=== PATIENT | male | born 1935 | race Caucasian/White ===

== ENCOUNTER → 2017-06-12 13:02 | Outpatient (POV) | payer MEDICARE, SELFPAY | PROVIDERS: Visit Provider Nurse Practitioner Acute Care | DX: Z00.00 Encounter for general adult medical examination without abnormal findings (principal) ==

== ENCOUNTER 2017-07-31 08:27 | Day surgery (SDC) | payer MEDICARE, SELFPAY ==
[2017-07-25 14:03] VITALS: BMI 26.9
[2017-07-31] VITALS (7 sets, daily range): BP systolic 146–178; BP diastolic 64–77; PULSE 44–61; RESP 16–18; TEMP 36.4–36.8; O2SAT 99–100
--- NOTE | 2017-07-31 09:33 | P.PN_ITS ---
[facility] Anesthesia Checklist - Structural Data Admitted From: Home Planned Operative Procedure/s: egd Consent for Planned Operative Procedure(s) Verified: Yes - Airway Assessment C-Spine Mobility Assessed: Yes TMJ Mobility Assessed: Yes Dentition: Good Dentition - Neurological Assessment Level of Consciousness: Awake, Alert - Anesthesia Plan Anesthesia Risk discussed: Yes Anesthesia Plan: Verified ASA Class: III Anesthesia Type: MAC [facility] Anesthesia HX Medical History: Reports:: Hyperlipidemia, Hypertension, Lung Disease (sleep apnea-uses cpap) Denies:: Diabetes Mellitus Type 1, Diabetes Mellitus Type 2, Internal Pacemaker, Seizures Other Surgeries: No: Pacemaker
--- NOTE | 2017-07-31 10:37 | P.PCN_ITS ---
[facility] Procedure Note Procedure Note:: Upper Endoscopy Procedure Report: Esophagogastroduodenoscopy with cold biopsies and TTS balloon dilation Endoscopost: Paulo Avelar II, MD Referring Physician: Rosas Bender MD Date of Procedure: July 31, 2017 Equipment: Olympus GIF 180 standard upper endoscope Sedation: MAC sedation Indications: Mr. Harris is a 81-year-old gentleman who had undergone colonoscopy in October 2016 because of lower abdominal pain and change in bowel habits. At that time he was having alternating constipation with diarrhea as well as rectal bleeding and 15 pound weight loss. He was having moderate bloating and gassiness. His colonoscopy at that time showed a descending colon polyp (tubular adenoma) which was removed. He also had diverticulosis and grade 2 internal hemorrhoids which were banded. Now, he states he had a change in bowel habits after the colonoscopy. He has been on MiraLAX and psyllium husk and reports very small bowel movements with incomplete bowel evacuation. He has had more severe bloating. He has continued to lose some weight. He has had dyspepsia. EGD is performed for further evaluation. Procedure: Prior to the procedure, a history and physical exam was performed, and patient' s medications and allergies were reviewed. The risks, benefits and alternatives of the sedation and procedure were discussed with the patient. All questions were answered and informed consent was obtained. The patient was brought to the procedure room. Patient identification and proposed procedure were verified by the physician and the nurse. The patient was placed in a left lateral decubitus position and the scope was passed under direct vision. Throughout the procedure, the patient's blood pressure, pulse, and oxygen saturations were monitored continuously. The upper GI endoscopy was accomplished without difficulty. The patient tolerated the procedure well. Findings: The scope was passed directly into the upper esophagus and advanced to the third portion of the duodenum. The post bulbar duodenum and duodenal bulb were normal with normal mucosa and conniventes. The scope was withdrawn through a normal duodenal bulb and pylorus into the stomach. There was some mild linear erythema of the antrum and body. The remainder of the antrum, body and fundus of the stomach were grossly normal. Upon retroflexion there was no hiatal hernia. 2 biopsies were taken in the antrum and along the lesser curvature for histology to rule out gastritis and/or H pylori. The scope was then withdrawn into the esophagus. There were some tertiary contractions and mild dysmotility. The entire esophagus was dilated to 60 Hungarian/20 mm with a TTS hydrostatic balloon. There was some resistance at the cricopharyngeus/ upper esophageal sphincter. The remainder of the esophageal mucosa was normal. Impression: 1. Mild cricopharyngeal spasm 2. Mild linear reactive gastritis Plan: I do feel that the patient has difficult to avoid difficulties and will discuss additional treatment options including increasing MiraLAX to twice daily plus the addition of Konsyl (improved bulk). We will also discuss elevation of the knees during defecation which may help evacuation.
== END 2017-07-31 11:13 | disposition home or self-care (01) ==
LOC: OUTP 08:28
PROVIDERS: Visit Provider Internal Medicine Gastroenterology
PROC: 0DJ08ZZ Inspection of Upper Intestinal Tract, Via Natural or Artificial Opening Endoscopic (ICD-10-PCS; CPT 43235; principal; 2017-07-31 10:00)
DX: J39.2 Other diseases of pharynx (principal); K29.60 Other gastritis without bleeding
CPT/HCPCS: 43239; 43249; 88305; C1726

== ENCOUNTER → 2017-10-30 09:13 | Outpatient (POV) | payer MEDICARE, SELFPAY | PROVIDERS: Visit Provider Nurse Practitioner Acute Care | DX: Z00.00 Encounter for general adult medical examination without abnormal findings (principal) ==

== ENCOUNTER → 2018-05-18 08:52 | Outpatient (CLI) | payer MEDICARE, SELFPAY ==
[2018-05-18 12:08] LABS: Alanine Aminotransferase 17 U/L (12-78); Albumin Level 3.7 gm/dL (3.4-5.0); Alkaline Phosphatase 90 U/L (46-116); Aspartate Amino Transferase 10 U/L (15-37); Bilirubin,Direct 0.2 mg/dL (0.0-0.2); Bilirubin,Indirect 0.4 mg/dL (0.0-0.9); Bilirubin,Total 0.6 mg/dL (0.2-1.0); Chol/HDL Ratio 1.8 (1-3.5); Cholesterol 147 mg/dL (140-200); HDL Cholesterol 81 mg/dL (27-67); LDL Cholesterol 52 mg/dL (0-130); Total Protein,Serum 6.7 gm/dL (6.4-8.2); Triglycerides 71 mg/dL (30-200); VLDL Cholesterol 14 mg/dL (0-40)
== END ==
PROVIDERS: Visit Provider Internal Medicine Cardiovascular Disease
DX: Z95.5 Presence of coronary angioplasty implant and graft (principal); E78.2 Mixed hyperlipidemia
CPT/HCPCS: 36415; 80061; 80076

== ENCOUNTER 2018-05-31 09:32 | Outpatient (RCR) | payer MEDICARE, SELFPAY | END 2018-07-06 13:44 | disposition home or self-care (01) | LOC: PT 09:32 | PROVIDERS: Visit Provider Internal Medicine | DX: Z95.5 Presence of coronary angioplasty implant and graft (principal) | CPT/HCPCS: 93798 ==

== ENCOUNTER → 2018-09-03 12:39 | Outpatient (CLI) | payer MEDICARE, SELFPAY ==
--- NOTE | 2018-09-03 12:41 | CI_ITS ---
Cerebrovascular Exam Indications: Follow-up carotid 433.10. 780.4 Dizziness and giddiness. IMPRESSIONS 1. The bilateral vertebral arteries are patent with normal antegrade flow. 2. Study suggests 20-49% stenosis involving the right internal carotid artery. 3. Study suggests 20-49% stenosis involving the left internal carotid artery. History: Risk factors: Hypertension. Carotid duplex study. Complete study and Doppler flow study including spectral analysis, color and bay scale imaging. Height: Height: 167.6cm. Height: 66in. Weight: Weight: 68kg. Weight: 149.7lb. Body mass index: BMI: 24.2kg/m^2. Body surface area: BSA: 1.79m^2. Location: Vascular laboratory. Patient status: Outpatient. Tables: Arterial flow: + +--------+--------+ Location V sys V ed + +--------+--------+ Right CCA - proximal 107cm/s 12.6cm/s + +--------+--------+ Right CCA - distal 96.6cm/s 9.4cm/s + +--------+--------+ Right ECA 107cm/s 1.5cm/s + +--------+--------+ Right ICA - proximal 77.3cm/s 16.2cm/s + +--------+--------+ Right ICA - mid 84cm/s 12.6cm/s + +--------+--------+ Right ICA - distal 84.8cm/s 14.5cm/s + +--------+--------+ Right vertebral 43.6cm/s 7.7cm/s + +--------+--------+ Left CCA - proximal 99.3cm/s 10.4cm/s + +--------+--------+ Left CCA - distal 77.5cm/s 8.7cm/s + +--------+--------+ Left ECA 97.1cm/s 3.7cm/s + +--------+--------+ Left ICA - proximal 67.5cm/s 14.1cm/s + +--------+--------+ Left ICA - mid 92.7cm/s 15.6cm/s + +--------+--------+ Left ICA - distal 78.7cm/s 13.5cm/s + +--------+--------+ Left vertebral 40.3cm/s 9.3cm/s + +--------+--------+ Velocity ratios: + + + + + + Right, V sys Right, V ed Left, V sys Left, V ed + + + + + + Max ICA/dist CCA 0.88 1.72 1.2 1.8 + + + + + + (Report amended ) Electronically signed by: Taye Vazquez [id number]
== END ==
PROVIDERS: PCP Family Medicine; Visit Provider Internal Medicine
DX: I25.118 Atherosclerotic heart disease of native coronary artery with other forms of angina pectoris; E78.2 Mixed hyperlipidemia; G47.33 Obstructive sleep apnea (adult) (pediatric); G47.9 Sleep disorder, unspecified; I10 Essential (primary) hypertension; R06.83 Snoring; R40.0 Somnolence; R42 Dizziness and giddiness
CPT/HCPCS: 93880

== ENCOUNTER → 2019-11-01 07:52 | Outpatient (CLI) | payer MEDICARE, SELFPAY ==
--- NOTE | 2019-11-01 07:53 | CA_ITS ---
APPROVED REPORT EXAM: Comprehensive 2D, Doppler, and color-flow Echocardiogram Director Of Residential Services: Cassidy Guardado RT(R) Ht: 5 ft 6 in Wt: 158lbs BSA: 1.81 BP: 160/63 mmHg Indications: HTN, SOB, DOUGLASS, hyperlipidemia, CAD, GERD 2D Dimensions LVOT 1.98 cm (M/F) 1.5-2.5 M-Mode Dimensions RVDd 1.37 cm (0.9-2.6) LVDd 4.46 cm (3.5-5.7) LVDs 3.03 cm (3.5-5.7) IVSd 0.62 cm (0.6-1.1) PWd 0.87 cm (0.6-1.1) EF (Teich) 60.30% FS 32.10% EDV (Teich) 90.50 mL ESV (Teich) 35.90 mL LV Diastology E/A Ratio 1.02 Mitral Valve MV A Velocity 113.00 (40-130 cm/s) Left Ventricle Left atrium is mildly enlarged, left ventricle is normal size, mild concentric left ventricular hypertrophy, visually estimated ejection fraction 55% with no regional wall motion abnormality, grade 1 diastolic dysfunction seen without tissue Doppler evidence of raise left atrial pressure. Right Ventricle Right atrium and right ventricle are normal size and contractility. Aortic Valve Aortic valve is minimally thickened and fibrosed, there is no aortic stenosis, there is mild aortic insufficiency. Mitral Valve Mitral valve has mild mitral calcification, there is no mitral stenosis, there is mild mitral regurgitation. Tricuspid Valve Tricuspid valve is grossly normal, there is mild tricuspid regurgitation, tricuspid regurgitation jet velocity is inadequate for calculation of the right ventricular systolic pressure. Pulmonic Valve Pulmonic valve is poorly visualized. Great Vessels Aortic root is normal size. Pericardium No significant pericardial effusion noted. Conclusion 1. Mildly enlarged left atrium, normal left ventricular size, mild concentric left ventricular hypertrophy, visually estimated ejection fraction 55% with no regional wall motion abnormality, grade 1 diastolic dysfunction seen without tissue Doppler evidence of raise left atrial pressure. 2. Thickened and calcified aortic valve without aortic stenosis, there is mild aortic insufficiency. 3. Mild mitral and tricuspid regurgitation. 4. No significant pericardial effusion noted. Electronically signed by : Tom Barrera, 11/01/2019 10:13:02
[2019-11-01 10:13] LABS: Chloride 107 mmol/L (98-107); Potassium 4.2 mmoL/L (3.5-5.1); Sodium 140 mmol/L (136-145)
[2019-11-01 10:16] LABS: Anion Gap 7.2 mEq/L (5-15); Blood Urea Nitrogen 19 mg/dl (9-20); Carbon Dioxide 30 mmol/L (22.0-30.0); Estimated Glomerular Filt Rate 81 ml/min (>60); GFR (African American) 98 ML/MIN (>60)
[2019-11-01 10:22] LABS: Calcium 8.7 mg/dl (8.4-10.2)
[2019-11-01 19:21] LABS: Glucose 89 mg/dl (74-100)
== END ==
PROVIDERS: PCP Family Medicine; Visit Provider Physician Assistant
DX: I25.118 Atherosclerotic heart disease of native coronary artery with other forms of angina pectoris (principal); I10 Essential (primary) hypertension; Z51.81 Encounter for therapeutic drug level monitoring; Z79.899 Other long term (current) drug therapy
CPT/HCPCS: 36415; 80048; 93306

== ENCOUNTER → 2020-02-27 11:45 | Outpatient (CLI) | payer MEDICARE, SELFPAY ==
[2020-02-27 12:56] LABS: Chloride 102 mmol/L (98-107); Potassium 4.2 mmoL/L (3.5-5.1); Sodium 140 mmol/L (136-145)
[2020-02-27 12:59] LABS: Anion Gap 10.2 mEq/L (5-15); Blood Urea Nitrogen 21 mg/dl (9-20); Calcium 9.2 mg/dl (8.4-10.2); Carbon Dioxide 32 mmol/L (22.0-30.0); Estimated Glomerular Filt Rate 72 ml/min (>60); GFR (African American) 87 ML/MIN (>60); Glucose 107 mg/dl (74-100)
== END ==
PROVIDERS: Visit Provider Internal Medicine Cardiovascular Disease
DX: E78.2 Mixed hyperlipidemia (principal); I10 Essential (primary) hypertension; I25.10 Atherosclerotic heart disease of native coronary artery without angina pectoris; I65.29 Occlusion and stenosis of unspecified carotid artery; R00.1 Bradycardia, unspecified; R42 Dizziness and giddiness
CPT/HCPCS: 36415; 80048

== ENCOUNTER → 2020-09-02 14:59 | Outpatient (CLI) | payer MEDICARE, SELFPAY ==
--- NOTE | 2020-09-02 15:00 | CA_ITS ---
APPROVED REPORT Couples Therapist: JACK Laterality: Bilateral Study Quality: Good Indications: dizziness/sweta Risk Factors Hypertension: Hyperlipidemia Doppler Spectral Velocity Analysis ECA (R) 140.10/11.80 cm/s ECA (L) 97.70/15.40 cm/s dICA (R) 94.10/24.60 cm/s dICA (L) 90.00/26.60 cm/s Karie (R) 94.10/23.50 cm/s Karie (L) 78.80/18.80 cm/s pICA (R) 92.00/17.10 cm/s pICA (L) 91.70/16.30 cm/s dCCA (R) 105.90/22.50 cm/s dCCA (L) 87.70/15.00 cm/s pCCA (R) 108.00/18.20 cm/s pCCA (L) 103.70/18.20 cm/s Vert (R) 56.80/12.50 cm/s Vert (L) 35.90/9.00 cm/s ICA/CCA 0.85 ICA/CCA 1.04 Findings Duplex evaluation demonstrates antegrade flow of the bilateral Vertebral Arteries.Duplex evaluation demonstrates stenosis of the right proximal internal carotid artery in the range of 20-49% with PSV <140 cm/sec, EDV <100 cm/sec, and IC/CC Ratio <4.0.Duplex evaluation demonstrates stenosis of the left proximal internal carotid artery in the range of 20-49% with PSV <140 cm/sec, EDV <100 cm/sec, and IC/CC Ratio <4.0. Conclusion Duplex evaluation demonstrates antegrade flow of the bilateral Vertebral Arteries.Duplex evaluation demonstrates stenosis of the right proximal internal carotid artery in the range of 20-49% with PSV <140 cm/sec, EDV <100 cm/sec, and IC/CC Ratio <4.0.Duplex evaluation demonstrates stenosis of the left proximal internal carotid artery in the range of 20-49% with PSV <140 cm/sec, EDV <100 cm/sec, and IC/CC Ratio <4.0. Electronically signed by : Taye Vazquez MD 09/02/2020 17:07:31
== END ==
PROVIDERS: PCP Family Medicine; Visit Provider Internal Medicine Cardiovascular Disease
DX: E78.5 Hyperlipidemia, unspecified (principal); I10 Essential (primary) hypertension; I25.10 Atherosclerotic heart disease of native coronary artery without angina pectoris; R00.1 Bradycardia, unspecified; R42 Dizziness and giddiness; I65.23 Occlusion and stenosis of bilateral carotid arteries
CPT/HCPCS: 93880

== ENCOUNTER → 2021-03-30 11:05 | Outpatient (CLI) | payer MEDICARE, SELFPAY ==
--- NOTE | 2021-03-30 | CA_ITS ---
APPROVED REPORT Exam: Exercise Treadmill Technologist: Lupe Alan Ht: 5 ft 6 in Wt: 144 lbs BSA: 1.74 m2 HR: 47 bpm BP: 138/44 mmHg Indications: Shortness of Breath, Chest pain Medical History Medications: Aspirin,,,,, Pantoprazole,,,,, Terazosin,,,,, Losartan/HCTZ,,,,, DONEPEZIL,,,,, OxYbutynin,,,,, CoQ10,,,,, MeLATONIN,,,,, RoSUVASTATIN,,,,, PolyethYLENE GLYCOL,,,,, Stress Test Details Test: Hakeem HR Resting HR: 60 bpm Max Heart Rate (APMHR): 137.857971 bpm Max HR Achieved: 117 bpm Target HR (85% APMHR): 116.889941 bpm % of APMHR: 85.40 Recovery HR: 55 bpm BP Resting BP: 138.0/44.0 mmHg Max BP: 175.0/67.0 mmHg Recovery BP: 150.0/63.0 mmHg ECG Resting ECG: Marked sinus bradycardia, first degree AV block. Clinical Exercise duration: 08:15 min Highest Stage Achieved: Exercise capacity: 10.1 METs Stress ECG Conclusion Patient exercised 8:15 on Hakeem Protocol. Test stopped due to shortness of air, fatigue. Symptoms: Shortness of air and mild chest tightness. Arrhythmias/Ectopy: Rare PAC and PVC. ST-T Changes: Allowing for motion artifact, there are NS ST changes in the inferior and lateral leads, but the ST response is within normal. Conclusion: Normal GXT. Myoview images reported separately. Test Summary RECOVERY 05:00 0.0 0.0 51 . 155/ 76 . . REST . . . . . . . Standing REST 05:43 0.0 0.0 60 . 138/ 44 . . Stage 1 01:00 10.0 1.7 77 . . . . Stage 1 02:00 10.0 1.7 76 . . . . Stage 1 03:00 10.0 1.7 80 . . . . Stage 2 01:00 12.0 2.5 85 . . . . Stage 2 02:00 12.0 2.5 93 . 142/ 56 . . Stage 2 03:00 12.0 2.5 96 . 142/ 56 . . Stage 3 01:00 14.0 3.4 103 . . . . Stage 3 . . . . . . . Myoview Injected Stage 3 02:00 14.0 3.4 114 . . . . Stage 3 02:15 14.0 3.4 115 . . . Stop exercise at 08:15 RECOVERY 01:00 0.0 0.0 106 . . . . RECOVERY 02:00 0.0 0.0 66 . . . . RECOVERY 03:00 0.0 0.0 61 . 175/ 67 . . RECOVERY 04:00 0.0 0.0 82 . 155/ 76 . . RECOVERY 05:00 0.0 0.0 51 . 155/ 76 . . RECOVERY 06:00 0.0 0.0 55 . 150/ 63 . . RECOVERY 06:16 0.0 0.0 61 . 150/ 63 . . Electronically signed by : Tom Barrera MD 03/30/2021 22:02:20
--- NOTE | 2021-03-30 11:06 | NM_ITS ---
APPROVED REPORT Exam: Nuclear Stress Test Indication: chest pain..short of breath Patient Location: Outpatient Stress Tech: Lupe Alan NM Tech:Svitlana Howard, ARRT, RT (R)(N) Ht: 5 ft 6 in Wt: 145 lbs HR: 47 bpm BP: 138/44 mmHg BSA: 1.74 m2 BMI: 23.4 History: chest pain..short of breath Procedure: Patient exercised on Hakeem protocol 8.15 minutes and sec, resting heart rate 47 bpm, resting blood pressure 138/44 mmHg, with exercise maximum heart rate achived was 117 bpm which is 85 % of the maximum predicted heart rate and blood pressure was 175/69 mmHg. Test was stopped due to soa and fatigue. Patient has good exercise capacity, achieved 10.1 METs of workload on treadmill, the blood pressure response to exercise was adequate. Electrocardiogram Resting electrocardiogram shows sinus rhythm nonspecific ST-T changes, with exercise there is less than 1.[address] segment depression noted from the baseline EKG. The EKG portion of the exercise Myoview is negative for ischemia. Cardiac Stress and Resting SPECT Images: Cardiac Stress and Resting SPECT images were obtained using technetium 99m Myoview 32.8 mCi stress and 10.47 mCi at rest. Gated SPECT for analysis of segmental wall motion and calculation of the ejection fraction also done. Prone images were also obtained. Cardiac stress and resting SPECT images show uniform myocardial activity without segmental perfusion abnormality, computer derived ejection fraction is 55% with no regional wall motion abnormality, right ventricle is mildly enlarged with normal contractility. Conclusion: 1. The EKG portion of the exercise Myoview is negative for ischemia, patient has good exercise capacity achieved 10.1 METs of workload on treadmill, the blood pressure response to exercise was adequate, there was no exercise-induced chest discomfort. 2. No scintigraphic evidence of reversible ischemia seen, computer derived ejection fraction is 55% with no regional wall motion abnormality, right ventricle is mildly enlarged with normal contractility. 3. Normal exercise Myoview study. Electronically signed by : Tom Barrera MD 03/31/2021 06:35:48
--- NOTE | 2021-03-30 13:20 | HMH.ITSHM ---
Current Home Medications as stated by this patient Chetan Harris or sales representative wire rope. []ROSUVASTATIN PANTOPRAZOLE OXYBUTYNIN MELATONIN LOSARTAN DONEPEZIL COQ10 TERAZOSIN ASA
== END ==
PROVIDERS: PCP Family Medicine; Visit Provider Internal Medicine Cardiovascular Disease
DX: R06.00 Dyspnea, unspecified (principal)
CPT/HCPCS: 78452; 93017; A9502

== ENCOUNTER 2024-04-24 13:48 | Outpatient (CLI) | payer MEDICARE, SELFPAY ==
--- OUTSIDE RECORDS SUMMARY | 2024-04-24 13:50 | XMS_ITS | Encounter Summary ---
Author Name [facility] Address [address] [place] [address] Care Team Providers Care Life Scientists Name Role Phone LIOR JAUREGUI Primary Care Provider Unavailabl e Insurance Providers: All historical and current Section Date Range: From patient's date of to the date document was created. This section includes the names of all active insurance providers for the patient. Insurance Provider Type of Coverage Plan Name Start of Policy Coverage End of Policy Coverage Group Number Member ID Insurance Provider's Telephone Number Policy Ling's Name Patient's Relationship to Policy Ling BS [place] M[place] ([place]) MEDICARE ADVANTAGE MCR (WNR) May 29, 2018 [id number] Yoav KUMAR PATIENT [employer] MCR (WNR) MEDICARE ADVANTAGE MCR (WNR) May 29, 2020 [id number] [phone] Yoav KUMAR PATIENT [employer] MCR (WNR) MEDICARE ADVANTAGE MCR (WNR) May 29, 2020 [id number] [phone] Yoav KUMAR PATIENT [employer] MCR (WNR) MEDICARE ADVANTAGE MCR(W NR) May 29, 2012 [id number] [phone] Yoav KUMAR PATIENT MEDICARE (WNR) MEDICARE (M) PART A Jul 27, 2002 PART A [id number] Yoav KUMAR PATIENT MEDICARE (WNR) MEDICARE (M) PART B Jul 27, 2002 PART B [id number] [phone] Yoav KUMAR PATIENT MEDICARE PART D (WNR) MEDICARE (M) PART D May 29, 2012 PART D [id number] Yoav KUMAR PATIENT MEDICARE PART D (WNR) MEDICARE (M) PART D May 29, 2012 PART D [id number] [phone] Yoav KUMAR PATIENT Selected Encounter This section includes the information on record at [place] for the Encounter. Date/Time Encounter Type Encounter Description Reason Provider Source Sep 05, 2023 01:00 PM COMPRE OPH EXAM EST PT 1/> OPTOMETRY ICD-10-CM H35.3131 Nexdtve age-related mclr degn, bilateral, early dry stage CONCEPCION ROMO Marly Encounter Template Text not used by [facility] Assessments - Encounter Diagnoses This section includes the primary and secondary diagnoses documented for the Encounter. Date/Time Primary/Secondary Diagnosis Diagnosis Name Provider Source Sep 05, 2023 01:23 PM PRIMARY Nexdtve age-related mclr degn, bilateral, early dry stage [facility] Sep 05, 2023 01:23 PM SECONDARY Combined forms of age-related cataract, bilateral [facility] Sep 05, 2023 01:23 PM SECONDARY Dry eye syndrome of bilateral lacrimal glands [facility] Sep 05, 2023 01:23 PM SECONDARY Presbyopia [facility] Plan of Treatment: Future Appointments (+ 6 months) and Future Tests (+/- 45 days) The Plan of Treatment section includes future care activities for the patient from all [place] treatmentfacilities. This section includes future appointments and future orders which are active, pending or scheduled. Future Appointments This section includes appointments that were scheduled to occur 6 months from the date of the Encounter, up to a maximum of 20 appointments. The data comes from all [place] treatment facilities. Appointment Date/Time Appointment Type Appointme nt Facility Name Feb 27, 2024 12:30 PM AMBULATORY - SURGERY [facility]GEL[facility] B[facility] Lab Results: +/- 30 days of the encounter This section includes the Chemistry and Hematology Lab Results on record with [place] for the patient. Radiology Reports and Pathology Reports are provided separately, in subsequent sections. Lab Results This section contains the Chemistry/Hematology Results that were resulted 30 days before or 30 daysafter the date of the Encounter. Date/Time Source Result Type Result - Unit Interpretation Reference Range Comment Aug 24, 2023 11:04 AM [facility] POC URINALYSIS Specimen Type: URINE Comment: Test performed by: [id number] Meter #: [id number] Ordering Provider: TK KEMP Report Released Date/Time: Aug 24, 2023 10:47 AM Reporting Lab: [address] [id number] Performing Lab: [address] [id number] .GLUCOSE Ur (POC) Negative mg/dL neg .KETONES Ur (POC) Negative mg/dL neg .BLOOD Ur (POC) Negative neg .PH Ur (POC) 6.0 5.0-8.5 .PROTEIN Ur (POC) Negative mg/dL neg .NITRITE Ur (POC) Negative neg .LEUKOCYTES Ur (POC) Negative neg .SG Ur (POC) 1.015 >1.000 Social History: Smoking Status (Most current) and Tobacco Use (All prior to encounter date) This section includes the most current, and the historical, smoking and tobacco- related health factors from the [place] facility where the Encounter took place. Current Smoking Status This section includes the most current smoking, or tobacco-related health factor, from the [place] facility where the Encounter took place. Date/Time Current Smoking Status Comment Yaw ity Mar 29, 2022 10:00 AM VA-TOBACCO NEVER USED [facility] Tobacco Use History This section includes a history of the smoking, or tobacco-related health factors, that were collected on or before the date of the Encounter. The data comes from the [place] facility where the Encounter took place. Date/Time Smoking Status/Tobacco Use Comment F acility Mar 29, 2021 09:30 AM VA-TOBACCO NEVER USED [facility] Apr 07, 2020 10:00 AM VA-TOBACCO NEVER USED [facility] Mar 13, 2019 10:42 AM VA-TOBACCO NEVER USED [facility] Jan 30, 2018 12:50 PM V9 LIFETIME NON-USER OF TOBACCO [facility] Dec 10, 2015 09:38 AM V9 LIFETIME NON-USER OF TOBACCO [facility] Oct 29, 2014 08:58 AM V9 LIFETIME NON-USER OF TOBACCO [facility] Encounter Notes: All associated encounter notes This section contains the clinical notes associated to the Encounter. Date/Time Encounter Note(s) Provider Source Sep 05, 2023 01:04 PM SUICIDE PREVENTION RISK ASSESSMENT SCREENING NOTE: LOCAL TITLE: [place] SUICIDE NOTE STANDARD TITLE: SUICIDE PREVENTION RISK ASSESSMENT SCREENING NOT DATE OF NOTE: SEP 05, 2023@13:04 ENTRY DATE: SEP 05, 2023@13:04:09 AUTHOR: SUNG COATES EXP COSIGNER: URGENCY: STATUS: COMPLETED C-SSRS Screening Pierce-Suicide Severity Rating Scale (C-SSRS Screener) 1. Over the past month, have you wished you were or wished you could go to sleep and not wake up? No 2. Over the past month, have you had any actual thoughts of killing yourself? No 3. Over the past month, have you been thinking about how you might do this? Response not required due to responses to other questions. 4. Over the past month, have you had these thoughts and had some intention of acting on them? Response not required due to responses to other questions. 5. Over the past month, have you started to work out or worked out the details of how to kill yourself? Response not required due to responses to other questions. 6. If yes, at any time in the past month did you intend to carry out this plan? Response not required due to responses to other questions. 7. In your lifetime, have you ever done anything, started to do anything, or prepared to do anything to end your life (for example, collected pills, obtained a gun, gave away valuables, went to the roof but didn't jump)? No 8. If YES, was this within the past 3 months? Response not required due to responses to other questions. /angie/ SUNG COATES Optometry Resident Signed: 09/05/2023 13:24 [facility] Sep 05, 2023 12:37 PM OPTOMETRY RESIDENT NOTE: LOCAL TITLE: OPTOMETRY RESIDENT NOTE STANDARD TITLE: OPTOMETRY RESIDENT NOTE DATE OF NOTE: SEP 05, 2023@12:37 ENTRY DATE: SEP 05, 2023@12:37:28 AUTHOR: SUNG COATES COSIGNER: CONCEPCION ROMO URGENCY: STATUS: COMPLETED OPTOMETRY RESIDENT NOTE Has ADDENDA Type of exam: Comprehensive Chief complaint/Reason for visit: 88YO WHITE patient presents for annual eye exam. Pt states blurry vision OU, distance and near with bifocals, mildly alleviated with use of current SRx. States some difficulties with computer work, on a desktop, needs to get closer to the screen to read with current bifocals, would like a pair of computer glasses today. Pt states stable longstanding floaters, unsure which eye, denies worsening. Denies flashes/loss of vision/eye pain/diplopia. No other ocular complaints. Pt states he has Alzheimer's/dementia, diagnosed for several years (~7-8 yrs), in office with and son Ocular History: NICHELLE: 04/12/22 (CEE) (+) Eye Injury: metal FB OS 10+ years ago (-) Eye Surgery/Laser Tx: (-) Eye Infection: (+) Other: Cataracts OU, NEAMD OU - early, STEVE, h/o subjective visual disturbance OU (-) History of Cancer (-) History of Known CVA (+) Use of anticoagulant Type: 81 mg aspirin Ocular Medications: None (-) History of allergies to ocular medications Family history: None Smoking history: (-) Smoker Macular Degeneration Hx: (-) Amsler grid changes:OD, OS (doesn't check) (-) Vitamin supplements (type/dose): Additional Risk Factors for Macular Degeneration: (+) Patient is over age 60 (-) Obesity (Centers for Disease Control and Prevention definition: BMI of 30 or more) (+) Pt has heritage (-) Female Sex Additional Glaucoma Risk Hx: (-) over age 40 (+) Pt is over age 60 (-) Pt has [place] heritage Medical history: Active problems - Computerized Problem List is the source for the followin. Insomnia 2. Skin eruption 3. Hyperlipidemia 4. Dementia 5. Coronary artery disease 6. Hypertension 7. Gastroesophageal reflux disease 8. Benign prostatic hyperplasia 9. Stable angina 10. Essential hypertension 11. Sleep apnea Allergies: LAMISIL Medications: Active Outpatient Medications (including Supplies): Active Outpatient Medications Status 1) CATHETER,EXTERNAL INVIEW MED H#[id number] USE CATHETER ACTIVE DIRECTED DIRECTED FOR SUPPLY USE 2) INCONT LINER PREVAIL GUARDS #[id number] USE LINER ACTIVE DIRECTED FOR INCONTINENCE 3) LEG BAG COMBINATION PK H#[id number] LATEX FREE USE 1 BAG ACTIVE KIT DIRECTED NEEDED FOR URINARY INCONTINENCE 4) SOLIFENACIN SUCCINATE 5MG TAB TAKE ONE TABLET BY ACTIVE MOUTH DAILY FOR BLADDER Active Non-VA Medications Status 1) Non-VA ASPIRIN 81MG EC TAB 81MG MOUTH DAILY ACTIVE 2) Non-VA DONEPEZIL HCL 10MG TAB 5MG MOUTH DAILY ACTIVE 3) Non-VA ISOSORBIDE MONONITRATE 60MG SA TAB 60MG MOUTH ACTIVE DAILY 4) Non-VA LOSARTAN TAB MOUTH DAILY ACTIVE 5) Non-VA RANOLAZINE 500MG SA TAB 500MG MOUTH MORNING ACTIVE 6) Non-VA SIMVASTATIN 40MG TAB 20MG MOUTH AT BEDTIME ACTIVE 7) Non-VA TERAZOSIN HCL 5MG CAP 5MG MOUTH DAILY ACTIVE 8) Non-VA TICAGRELOR 90MG TAB,ORAL MOUTH TWICE A DAY ACTIVE 9) Non-VA TRAZODONE HCL 50MG TAB 75MG MOUTH AT BEDTIME ACTIVE 13 Total Medications Medication list reviewed by: Treva Medication list is accurate per patient/doctor review, Pt/significant other reports patient taking ALL VA, Non VA,OTC medications as listed on medication tab. Describe Discrepancies: Printed copy of medication list provided to patient and/or significant other and reviewed: Yes Explained to patient and/or significant other the importance of keeping providers updated on medication changes and to carrying an updated list of medication at all times in case of an emergency situation. Yes Medication changes reviewed, patient/significant other verbalized understanding, provided updated list. VA: cc 20/60+1 PH 20/40-2 20/40+1 PHNI Habitual Rx: OD: +1.50-1.28u815 OS: +1.75-0.64a173 Add: +2.50 EOMs: Full and unrestricted OU, No Diplopia Confrontation VF: Full to finger count OU Pupils: PERRL, no APD Amsler Grid: OD: (-)scotoma, (-)metamorphopsia OS: (-)scotoma, (-)metamorphopsia Refraction: OD: +1.00-1.74v406 20/40 OS: +1.25-0.45p043 20/40+1 Add: +2.50 Final RX: below Bifocal Rx: OD: +1.00-1.01r913 OS: +1.25-0.40f532 Add: +2.50 Computer Rx: OD: +2.25-1.97c136 OS: +2.50-0.11o042 SLIT LAMP EXAM: Lids/lashes: thickened scalloped lid margins OU Conj/sclera: Clear/white OU Cornea: several small round stromal scars centrally (3 OD, 1 OS), (+)Márquez stahli line OU Anterior chamber: D/q OU Iris/pupil: Flat/round OU Informed consent obtained prior to instillation of all diagnostic pharmaceutical agents. IOPs (Goldmann applanation): igt Altafluor Benox OD, OS OD: 21 OS: 21 Time: 1254 Angles: VH gr 4N/T OU OCULAR HEALTH: igt 1% Tropicacyl OD, igt 1% Tropicacyl OS, igt 2.5% Phenylephrine OD, igt 2.5% Phenylephrine OS Time: 1300 Lenses used for viewinD, 20D LENS: OD: 2+ milky NSC w/ brunescence, 1+ PSC sup and centrally, tr CC OS: 2+ milky NSC w/ brunescence, tr PSC sup, tr CC C/D: H/V OD: 0.15/0.15; NRRI, No Hemes, No Pallor, No Edema OS: 0.15/0.15, sloped temporally, NRRI, No Hemes, No Pallor, No Edema Size: smaller than average MACULA: OD: Flat, tr pigment mottling, few small hard drusen, no hemes or CNVM OS: Flat, tr pigment mottling, few small hard drusen, no hemes or CNVM VESSELS: OD: 2/3 AV OS: 2/3 AV POSTERIOR POLE: OD: scattered soft drusen along arcades OS: scattered soft drusen along arcades VITREOUS: OD: Clear OS: Clear PERIPHERY: OD: No holes, tears or breaks OS: No holes, tears or breaks A: 1. 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 Senile combined cataracts OU - BCVA 20/40 OD, 20/40+1 OS; relatively stable OU - Mild myopic shift OU 3. Dry eye syndrome OU 4. Presbyopia OU P: 1. Patient educated on condition and the importance of daily testing with a home Amsler Grid to quickly detect any changes in the retina which could potentially lead to devastating vision loss. Patient advised on the risks of smoking. Pt educated about other modifiable risk factors for the prevention of progression. Monitor annually or ELSIE if changes on Amsler grid. 2. Patient educated about cataracts, their effect on vision and the typical time for extraction is when they begin to affect the patient's activities of daily living. Patient was advised on the typical gradual course of cataracts and instructed to RTC if vision changes significantly before next F/U. 3. Patient educated on the use of VA artificial tears 3-4 times per day OU. Patient educated regarding proper lid hygiene and warm compresses daily OU. Patient to RTC should symptoms worsen or not improve with supportive intervention. 4. Finalized and updated SRx for full-time wear and computer use. Monitor at next visit. The voiced understanding of topics covered/discussed in today's visit. Next visit: 12 months with resident-1 for MARIO ALBERTO /angie/ CONCEPCION ROMO Chief of Optometry Signed: 09/05/2023 15:22 for SUNG COATES Optometry Resident /angie/ CONCEPCION ROMO Chief of Optometry Cosigned: 09/05/2023 15:22 09/05/2023 ADDENDUM STATUS: COMPLETED This service was performed in whole or in part by a resident at a [place] Medical Center or Clinic, supervised in accordance with [place] policy. I have discussed the patient with the examining resident. I agree with the clinical findings and the assessment and plan. /angie/ CONCEPCION ROMO Chief of Optometry Signed: 09/05/2023 15:22 CONCEPCION ROMO [facility]
--- OUTSIDE RECORDS SUMMARY | 2024-04-24 13:50 | XMS_ITS | Continuity of Care Document ---
Author Name [facility] Organization [facility] Care Team Providers Care Orthotist Name Role Phone [facility] Unavailable Unavailable Problems Combined list of problems from [facility] facilities. It does not include entries that were removed or entered in error. Problem Status Onset Date Problem Type Date of Resolution Comments Source Benign prostatic hyperplasia Active Condition [facility] Coronary artery disease Active Condition [facility] Dementia Active Condition [facility] Essential hypertension Active Condition [facility] Gastroesophageal reflux disease Active Condition [facility] Hyperlipidemia Active [place] [facility] Hypertension Active Condition [facility] Insomnia Active Condition [facility] Skin eruption Active Condition [facility] Sleep apnea Active Condition [facility] Stable angina Active Condition [facility] Diagnosis: ICD-10-CM N40.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 Medication Details Route Status Patient Instructions Prescription Expires Prescription Number Last Dispense Date Ordering Provider Order Date Order Qty Source ASPIRIN 81MG TAB,EC TAKE ONE TABLET BY MOUTH DAILY ORAL ACTIVE Jasbir MOYA A 2014 [place] [facility] DEXTRAN 70/GLYCERIN 0.2%/HYPROM ELLOSE 0.3% SOLN,OPH PUT 1 DROP IN BOTH EYES TWICE A DAY NEEDED FOR DRY EYES OPHTHA LMIC ACTIVE 09/05/2024 [id number] Isrrael COATES M 2023 15 [place] [facility] DONEPEZIL HCL 10MG TAB TAKE ONE-HALF TABLET BY MOUTH DAILY ORAL ACTIVE Rosemary DING 2017 [place] [facility] FINASTERIDE 5MG TAB TAKE ONE TABLET BY MOUTH DAILY FOR PROSTATE ORAL ACTIVE 04/19/2025 [id number] Isrrael WEST 2023 90 [place] ISOSORBIDE MONONITRATE 60MG TAB,SA TAKE ONE TABLET BY MOUTH DAILY ORAL ACTIVE Jasbir MOYA 2014 [place] [facility] LOSARTAN TAB TAKE BY MOUTH DAILY ORAL ACTIVE VICKIE JAUREGUI EK R 2018 [place] [facility] RANOLAZINE 500MG TAB,SA TAKE ONE TABLET BY MOUTH AM ORAL ACTIVE Jasbir MOYA 2014 [place] [facility] SIMVASTATIN 40MG TAB TAKE ONE-HALF TABLET BY MOUTH AT BEDTIME ORAL ACTIVE Jasbir MOYA 2014 [place] [facility] SOLIFENACIN SUCCINATE 5MG TAB TAKE ONE TABLET BY MOUTH DAILY FOR BLADDER ORAL DISCONT INUED 10/20/2023 [id number] LOTUS PEDRO 2022 90 [place] SOLIFENACIN SUCCINATE 5MG TAB TAKE ONE TABLET BY MOUTH DAILY FOR BLADDER ORAL 02/16/2024 [id number] YISEL MARTINEZ 2022 90 [place] TERAZOSIN HCL 5MG CAP TAKE 1 CAPSULE BY MOUTH DAILY ORAL ACTIVE Jasbir MOYA 2014 [place] [facility] TICAGRELOR 90MG TAB,ORAL TAKE BY MOUTH TWICE A DAY ORAL ACTIVE VICKIE JAUREGUI EK R 2018 [place] [facility] TRAZODONE HCL 50MG TAB TAKE 1.5 TABLETS BY MOUTH AT BEDTIME ORAL ACTIVE Rosemary DING 2017 [place] [facility] Allergies, Adverse Reactions, Alerts Combined list of allergies from [facility] Defense and [facility] facilities. It does not include entries that were removed or entered in error. Substance Category Reaction Severity Reaction type Status Date Reported Comments Source LAMISIL Propensity to adverse reactions to drug (finding) Eruption active 5 [facility] Immunizations Combined list of available immunizations from the Department of Defense and Veterans Affairs facilities. Immunization Series Date Given Administered By Site Reaction Lot Number CVX Code Drug Dry Kiln Operator Status Comments Source COVID-19 (MODERNA), MRNA, LNP-S, PF, 50 MCG/0.5 ML (AGES 12+ YEARS) 7 2022 312 complet ed [place] [facility] INFLUENZA, HIGH-DOSE, QUADRIVALENT, PF 6 2022 197 complet ed [place] [facility] COVID-19 (MODERNA), MRNA, LNP-S, BIVALENT, PF, 50 MCG/0.5 ML OR 25MCG/0.25 ML DOSE 6 2022 229 complet ed [place] [facility] COVID-19 (MODERNA), MRNA, LNP-S, BIVALENT, PF, 50 MCG/0.5 ML OR 25MCG/0.25 ML DOSE 5 2021 229 complet ed [place] [facility] INFLUENZA, SPLIT VIRUS, QUADRIVALENT, PF 5 2021 150 complet ed [place] [facility] INFLUENZA, UNSPECIFIED FORMULATION 2021 88 complet ed [place] [facility] COVID-19 (MODERNA), MRNA, LNP-S, PF, 100 MCG/0.5ML DOSE OR 50 MCG/0.25ML DOSE 4 2021 207 complet ed [place] [facility] COVID-19 (MODERNA), MRNA, LNP-S, PF, 100 MCG/0.5ML DOSE OR 50 MCG/0.25ML DOSE 3 2020 207 complet ed [place] [facility] COVID-19 (MODERNA), MRNA, LNP-S, PF, 100 MCG/0.5 ML DOSE 3 2020 207 complet ed [place] [facility] INFLUENZA, UNSPECIFIED FORMULATION 2020 88 complet ed [place] [facility] COVID-19 (MODERNA), MRNA, LNP-S, PF, 100 MCG/0.5ML DOSE OR 50 MCG/0.25ML DOSE 2 2020 207 complet ed [place] [facility] COVID-19 (MODERNA), MRNA, LNP-S, PF, 100 MCG/0.5ML DOSE OR 50 MCG/0.25ML DOSE 1 2020 207 complet ed [place] [facility] INFLUENZA, UNSPECIFIED FORMULATION 2019 88 complet ed [place] [facility] INFLUENZA, HIGH-DOSE, QUADRIVALENT, PF 4 2019 197 complet ed [place] [facility] INFLUENZA, SEASONAL, INJECTABLE 2018 141 complet ed [place] [facility] INFLUENZA, HIGH-DOSE, TRIVALENT, PF 3 2018 135 complet ed [place] [facility] INFLUENZA, HIGH-DOSE, TRIVALENT, PF 2 2017 135 complet ed [place] [facility] INFLUENZA, SEASONAL, INJECTABLE 2016 141 complet ed [place] [facility] PNEUMOCOCCAL CONJUGATE PCV 13 2 2016 133 complet ed [place] [facility] INFLUENZA, HIGH-DOSE, TRIVALENT, PF 1 2016 135 complet ed [place] [facility] ZOSTER LIVE 2016 121 complet ed [place] [facility] INFLUENZA A & B (HISTORICAL) 2015 88 complet ed [place] [facility] PNEUMOCOCCAL, UNSPECIFIED FORMULATION 2015 109 complet ed [place] [facility] INFLUENZA A & B (HISTORICAL) 2014 88 complet ed [place] [facility] DTP 2014 01 complet ed [place] [facility] TDAP 2014 115 complet ed [place] [facility] PNEUMOCOCCAL, UNSPECIFIED FORMULATION 2013 109 complet ed [place] [facility] INFLUENZA A & B (HISTORICAL) 2013 88 complet ed [place] [facility] PNEUMOCOCCAL POLYSACCHARID E PPV23 1 2008 33 complet ed [place] [facility] TD (ADULT), 2 LF TETANUS TOXOID, PRESERVATIVE FREE, ADSORBED 1 1996 09 complet ed [place] [facility] Results Combined list of recent chemistry, hematology and other laboratory results from Department of Defense and Veterans Affairs, ranging from 15 months to all on record, depending upon the facility. Order Name Results Value Reference Range Date Interpretation Specimen Comments Source POC URINALYSI S GLUCOSE [MASS/VOLUM E] IN URINE BY TEST STRIP Negativem g/dL 08/23 Specimen Type: URINE Comment: Test performed by: [id number] Meter #: [id number] Ordering Provider: MADELYN KEMP SON Report Released Date/Time: Aug 24, 2023 10:47 AM Reporting Lab: [address] [address] Performing Lab: [place] [id number] [facility] POC URINALYSI S KETONES [MASS/VOLUM E] IN URINE BY TEST STRIP Negativem g/dL 08/23 Specimen Type: URINE Comment: Test performed by: [id number] Meter #: [id number] Ordering Provider: MADELYN KEMP SON Report Released Date/Time: Aug 24, 2023 10:47 AM Reporting Lab: [address] [address] Performing Lab: [address] [address] [facility] POC URINALYSI S HEMOGLOBIN [PRESENCE] IN URINE BY TEST STRIP Negative 08/23 Specimen Type: URINE Comment: Test performed by: [id number] Meter #: [id number] Ordering Provider: MADELYN KEMP SON Report Released Date/Time: Aug 24, 2023 10:47 AM Reporting Lab: [address] [address] Performing Lab: [address] [address] [place] POC URINALYSI S PH OF URINE BY TEST STRIP 6.0 5.0 - 8.5 08/23 Specimen Type: URINE Comment: Test performed by: [id number] Meter #: [id number] Ordering Provider: MADELYN KEMP Report Released Date/Time: Aug 24, 2023 10:47 AM Reporting Lab: [address] [address] Performing Lab: [address] [address] [place] POC URINALYSI S PROTEIN [PRESENCE] IN URINE BY TEST STRIP Negativem g/dL 08/23 Specimen Type: URINE Comment: Test performed by: [id number] Meter #: [id number] Ordering Provider: MADELYN KEMP Report Released Date/Time: Aug 24, 2023 10:47 AM Reporting Lab: [address] [address] Performing Lab: [address] [address] [place] P[facility] URINALYSI S NITRITE [PRESENCE] IN URINE BY TEST STRIP Negative 08/23 Specimen Type: URINE Comment: Test performed by: [id number] Meter #: [id number] Ordering Provider: MADELYN KEMP Report Released Date/Time: Aug 24, 2023 10:47 AM Reporting Lab: [address] [address] Performing Lab: [address] [address] [place] POC URINALYSI S LEUKOCYTES [PRESENCE] IN URINE Negative 08/23 Specimen Type: URINE Comment: Test performed by: [id number] Meter #: [id number] Ordering Provider: MADELYN KEMP Report Released Date/Time: Aug 24, 2023 10:47 AM Reporting Lab: [address] [address] Performing Lab: [address] [id number] [facility] [facility] POC URINALYSI S SPECIFIC GRAVITY OF URINE BY TEST STRIP 1.015 1.000 08/23 Specimen Type: URINE Comment: Test performed by: [id number] Meter #: [id number] Ordering Provider: MADELYN KEMP Report Released Date/Time: Aug 24, 2023 10:47 AM Reporting Lab: [address] [address] Performing Lab: [place] [id number] [facility] POC URINALYSI S GLUCOSE [MASS/VOLUM E] IN URINE BY TEST STRIP Negativem g/dL 08/16 Specimen Type: URINE Comment: Test performed by: [id number] Meter #: [id number] Ordering Provider: MADELYN KEMP Report Released Date/Time: Aug 16, 2022 10:01 AM Reporting Lab: [place] [id number] Performing Lab: [place] [id number] [facility] POC URINALYSI S KETONES [MASS/VOLUM E] IN URINE BY TEST STRIP Negativem g/dL 08/16 Specimen Type: URINE Comment: Test performed by: [id number] Meter #: [id number] Ordering Provider: MADELYN KEMP Report Released Date/Time: Aug 16, 2022 10:01 AM Reporting Lab: [address] [address] Performing Lab: [place] [id number] [facility] POC URINALYSI S HEMOGLOBIN [PRESENCE] IN URINE BY TEST STRIP Negative 08/16 Specimen Type: URINE Comment: Test performed by: [id number] Meter #: [id number] Ordering Provider: MADELYN KEMP Report Released Date/Time: Aug 16, 2022 10:01 AM Reporting Lab: [address] [address] Performing Lab: [address] [address] [facility] POC URINALYSI S PH OF URINE BY TEST STRIP 7.0 5.0 - 8.5 08/16 Specimen Type: URINE Comment: Test performed by: [id number] Meter #: [id number] Ordering Provider: MADELYN KEMP Report Released Date/Time: Aug 16, 2022 10:01 AM Reporting Lab: [address] [address] Performing Lab: [address] [address] [place] [facility] POC URINALYSI S PROTEIN [PRESENCE] IN URINE BY TEST STRIP Negativem g/dL 08/16 Specimen Type: URINE Comment: Test performed by: [id number] Meter #: [id number] Ordering Provider: MADELYN KEMP SON Report Released Date/Time: Aug 16, 2022 10:01 AM Reporting Lab: [address] [address] Performing Lab: [place] [id number] [place], [place] [address] POC URINALYSI S NITRITE [PRESENCE] IN URINE BY TEST STRIP Negative 08/16 Specimen Type: URINE Comment: Test performed by: [id number] Meter #: [id number] Ordering Provider: MADELYN KEMP SON Report Released Date/Time: Aug 16, 2022 10:01 AM Reporting Lab: [address] [address] Performing Lab: [address] [address] [place] [facility] POC URINALYSI S LEUKOCYTES [PRESENCE] IN URINE Negative 08/16 Specimen Type: URINE Comment: Test performed by: [id number] Meter #: [id number] Ordering Provider: MADELYN KEMP SON Report Released Date/Time: Aug 16, 2022 10:01 AM Reporting Lab: [address] [address] Performing Lab: [address] [address] [facility] P[facility] URINALYSI S SPECIFIC GRAVITY OF URINE BY TEST STRIP 1.010 1.000 03/21 /2023 Specimen Type: URINE Comment: Test performed by: [id number] Meter #: [id number] Ordering Provider: MADELYN KEMP Report Released Date/Time: Aug 16, 2022 10:01 AM Reporting Lab: [address] [address] Performing Lab: [address] [address] [facility] Encounters Combined list of: 1) Encounters from Department of [facility] Affairs facilities going back up to thelast 18 months. 2) Encounters from the Department of [facility] facilities going back up to 280 months. Location Location Details Encounter Type Encounter Number Reason For Visit Attending Provider ADM Date DC Date Status Disposition Source [facility] OFFICE O/P EST HI 40-54 MIN [id number] Diagnos is: ICD-10- CM N40.1 Benign prostat ic hyperpl jennifer with lower urinary tract symp
CARLOS MARTINEZ 11/16 [place] [facility] OFFICE O/P EST HI 40-54 MIN [id number] Diagnos is: ICD-10- CM N39.41 Urge inconti nence<b r/> CARLOS MARTINEZ 02/15 [place] [facility] Outpatient Encounter [id number] 03/22 [place] [facility] Outpatient Encounter [id number] 03/22 [place] Outpatient Encounter [id number] AC GALARZA 07/17 [place] [facility] OFFICE O/P EST MOD 30 MIN [id number] Diagnos is: ICD-10- CM N40.1 Benign prostat ic hyperpl jennifer with lower urinary tract symp
DENICE WEST 08/23 [place] [facility] COMPRE OPH EXAM EST PT 1/> [id number] Diagnos is: ICD-10- CM H35.313 1 Nexdtve age-rel ated mclr degn, bilater al, early dry stage<b r/> CLARISSA,CONCEPCION L 09/04 [place] [facility] Outpatient Encounter [id number] 02/26 [place] [facility] OFFICE O/P EST LOW 20 MIN [id number] Diagnos is: ICD-10- CM N40.1 Benign prostat ic hyperpl jennifer with lower urinary tract symp
DENICE WEST LYSON B 04/18 [place] Outpatient Encounter [id number] [facility] Social History Combined list of available smoking, tobacco, and other social history from Department of Defense and Veterans Affairs facilities. Social History Type Response Date Comment Sourc e Tobacco [facility]2021 [facility] 04[facility]07/2020 [facility] 03/13/2019 [facility] History of tobacco use V9 LIFETIME NON-USER OF TOBACCO 01/30/2018 [facility] History of tobacco use V9 LIFETIME NON-USER OF TOBACCO 12/10/2015 [facility] History of tobacco use V9 LIFETIME NON-USER OF TOBACCO 10/29/2014 [facility] Plan of Care List of future care activities from Department of [facility] Affairs facilities. Additional future care activities may be listed in the Assessment and Plan section. Date/Time Care Activity Care Activity Detail Facili ty 10/16/2024 [facility]
--- OUTSIDE RECORDS SUMMARY | 2024-04-24 13:50 | XMS_ITS | Encounter Summary ---
Author Name [facility] [place] [facility] [place] Address [address] [place] [address] Care Team Providers Care Cost Engineer Name Role Phone LIOR JAUREGUI Primary Care [...] MEDICARE ADVANTAGE MCR (WNR) May 29, 2018 [facility] [id number] Yoav KUMAR PATIENT [employer] MCR (WNR) MEDICARE ADVANTAGE MCR (WNR) May 29, 2020 [id number] Yoav KUMAR PATIENT [employer] MCR (WNR) MEDICARE ADVANTAGE MCR (WNR) May 29, 2020 [id number] Yoav KUMAR HAYDENGUILLERMO PATIENT [employer] MCR (WNR) MEDICARE ADVANTAGE MCR(W NR) May 29, 2012 [id number] Yoav KUMAR PATIENT MEDICARE (WNR) MEDICARE (M) PART A Jul 27, 2002 PART A [id number] Yoav KUMARKathrine PATIENT MEDICARE (WNR) MEDICARE (M) PART B Jul 27, 2002 PART B [id number] Yoav KUMAR PATIENT MEDICARE PART D (WNR) MEDICARE (M) PART D May 29, 2012 PART D [id number] Yoav KUMAR PATIENT MEDICARE PART D (WNR) MEDICARE (M) PART D May 29, 2012 PART D [id number] Yoav KUMAR PATIENT Selected Encounter This section includes the information on record at [place] for the Encounter. 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 Date/Time Primary/Secondary Diagnosis Diagnosis Name Provider Source Apr 18, 2024 01:10 PM PRIMARY Benign prostatic hyperplasia with lower urinary tract symp [facility] Apr 18, 2024 01:10 PM SECONDARY Frequency of micturition [facility] Apr 18, 2024 01:10 PM SECONDARY Urgency of urination [facility] Plan of Treatment: Future Appointments (+ 6 months) and Future Tests (+/- 45 days) The Plan of Treatment section includes future care activities for the patient from all [place] treatmentfacilities. This section includes future appointments and future orders which are active, pending or scheduled. Future Appointments This section includes appointments that were scheduled to occur 6 months from the date of the Encounter, up to a maximum of 20 appointments. The data comes from all [place] treatment facilities. Appointment Date/Time Appointment Type Appointme nt Facility Name October 16, 2024 01:00 PM AMBULATORY - SURGERY [facility] Encounter Notes: All associated encounter notes This section contains the clinical notes associated to the Encounter. Date/Time Encounter Note(s) Provider Source Apr 18, 2024 12:50 PM UROLOGY PHYSICIAN BUSINESS SERVICES CLERK NOTE: LOCAL TITLE: UROLOGY CLINIC PA NOTE STANDARD TITLE: UROLOGY PHYSICIAN BUSINESS SERVICES CLERK NOTE DATE OF NOTE: APR 18, 2024@12:50 ENTRY DATE: APR 18, 2024@12:51 AUTHOR: [facility]NA [facility] EXP COSIGNER: URGENCY: STATUS: COMPLETED CC: LUTS HPI-88yo MALE with history of alzheimers here for LUTS follow up, currently managed with terazosin only. Patient reports no improvement in urgency or UUI with solifenacin. Oxybutynin was the only overactive medication that was ever beneficial, but this was discontinued due to his diagnosis of Alzheimers Disease. He has failed trospium and mirabegron. He is now at an assisted living home. He is present with his son today. He reports weak urinary stream, hesitancy, and double voiding. He has occasional intermittency. He voids every hour typically. He has urgency to void with difficulty holding his urine. He has Rx for pads, but prefers using paper- towels. He denies gross hematuria or dysuria. He uses miralax infrequently. He has a bowel movememnt every 1-2d. Patient also has a history of chronic scrotal pain. He takes Vit B12. He had a repeat scrotal US on 01/17/23, which demonstrated bilateral simple testicular cysts and bilateral L>R hydroceles. ALLERGIES: LAMISIL FURTHER ROS: CONSTITUTIONAL: Denies weight loss, fever, chills, weakness or fatigue. CARDIOVASCULAR: Denies chest pain, chest pressure or chest discomfort. RESPIRATORY: Denies shortness of breath, cough or sputum. GASTROINTESTINAL: Denies anorexia, nausea, vomiting or diarrhea. GENITOURINARY: as per hpi HEMATOLOGIC: Denies bleeding or bruising. PE: Gen: NAD, resting comfortably RESP: Nonlabored, symmetric chest rise ABD: Soft, nontender, nondistended, no CVAT bilaterally EXT: No edema DATA REVIEWED: LABS REVIEWED FOR today's visit: Z PROSTATIC ANTIGEN - NONE FOUND PANEL 1 - NONE FOUND RADIOGRAPHIC IMAGING or reports REVIEWED for today's visit: None this encounter DIAGNOSES/PROBLEMS ADDRESSED AT THIS ENCOUNTER: BPH w/ LUTS Urgency with UUI Urinary frequency PLAN: -Finasteride was presribed to the patient. Proper use with potential side effects were discussed and reviewed with patient. We discussed trying mirabegron again at next visit if no improvement in urgency and frequency with additional tx for obstructive symptoms. -Recommend miralax daily -Follow-up plan is to return to Urology in 6m with PVR. -A total of 24 minutes were spent on this encounter which included chart and test review before seeing the patient, performing appropriate history/exam during the visit, counseling the patient, ordering tests and/or medications, arranging follow-up, making referral (when indicated) to another specialist, interpretation of tests results and discussion with the patient/family, documentation in the electronic health record and coordination of care. The attending of record for this patient is Dr. Landeros who was present/available in for discussion. /angie/ [facility] UROLOGY PA Signed: 04/18/2024 13:11 [facility]
--- OUTSIDE RECORDS SUMMARY | 2024-04-24 13:50 | XMS_ITS ---
Author Name [facility] [place] Address [address] [place] [address] Care Team Providers Care Sap Mobility Architect Name Role Phone LIOR JAUREGUI Primary Care [...] MCR (WNR) May 29, 2018 [id number] Yoav KUMAR PATIENT [employer] MCR (WNR) MEDICARE ADVANTAGE MCR (WNR) May 29, 2020 [id number] Yoav KUMAR PATIENT [employer] MCR (WNR) MEDICARE ADVANTAGE MCR (WNR) May 29, 2020 [id number] Yoav KUMAR PATIENT [employer] MCR (WNR) MEDICARE ADVANTAGE MCR(W NR) May 29, 2012 [id number] Yoav KUMAR PATIENT MEDICARE (WNR) MEDICARE (M) PART A Jul 27, 2002 PART A [id number] Yoav KUMAR PATIENT MEDICARE (WNR) MEDICARE (M) PART B Jul 27, 2002 PART B [id number] Yoav KUMAR PATIENT MEDICARE PART D (WNR) MEDICARE (M) PART D May 29, 2012 PART D [id number] Yoav KUMAR PATIENT MEDICARE PART D (WNR) MEDICARE (M) PART D May 29, 2012 PART D [id number] Yoav KUMAR PATIENT Selected Encounter This section includes the information on record at [place] for the Encounter. Date/Time Encounter Type Encounter Description Reason Pro vider Source Apr 18, 2024 03:11 PM Outpatient Encounter ADMIN PAT ACTIVTIES (MASNONCT) IHE Encounter Template Text not used by [place] Plan of Treatment: Future Appointments (+ 6 months) and Future Tests (+/- 45 days) The Plan of Treatment section includes future care activities for the patient from all [place] treatmentfacilities. This section includes future appointments and future orders which are active, pending or scheduled. Future Appointments This section includes appointments that were scheduled to occur 6 months from the date of the Encounter, up to a maximum of 20 appointments. The data comes from all [place] treatment facilities. Appointment Date/Time Appointment Type Appointme nt Facility Name October 16, 2024 01:00 PM AMBULATORY - SURGERY [facility] Encounter Notes: All associated encounter notes This section contains the clinical notes associated to the Encounter. Date/Time Encounter Note(s) Provider Source Apr 18, 2024 03:11 PM ADMINISTRATIVE NOT E: LOCAL TITLE: CCC: SCHEDULING ADMINISTRATION STANDARD TITLE: ADMINISTRATIVE NOTE DATE OF NOTE: APR 18, 2024@15:11:33 ENTRY DATE: APR 18, 2024@15:11:33 AUTHOR: MAGDALENA PALACIOS COSIGNER: URGENCY: STATUS: COMPLETED CCC: SCHEDULING ADMINISTRATION Has ADDENDA Patient Demographics Patient Name: KAREN KUMAR Patient Primary Phone: [phone] Patient Primary Address: [address] [place] [address] Patient : 1935 Patient Age: 88 Call Back Number: [phone] Caller/Recipient Relation to Patient: Other If Other Describe Relation to Patient: nurse Caller Name: Una Administrative Administrative Note Reason: Other Administrative Note Comments: Una from [facility] requesting a progress report for a change in medication by urology IMPORTANT: This note was created by [facility] Clinical Contact Center staff. Please do not alert the staff member by adding them as a signer for future communications. Alerts are not monitored by this user. /angie/ Magdalena SHANNON Signed: 04/18/2024 15:11 Receipt Acknowledged By: 04/19/2024 09:15 /angie/ VAL LOPEZ UROLOGY SURGERY GOVERNMENT SERVICES PROFESSIONAL 04/19/2024 ADDENDUM STATUS: COMPLETED Una reached per above note. Advised new med was Rx yesterday. She confirms 's son had brought the medication to her at [place]. She is also requesting progress note. Advised patient must request through [facility]. Direct extension given. She expressed understanding and gratitude for the call back. /angie/ VAL LOPEZ UROLOGY SURGERY GOVERNMENT SERVICES PROFESSIONAL Signed: 04/19/2024 09:20 04/19/2024 ADDENDUM STATUS: COMPLETED Upon further review, medication ordered per 04/18/24 Uro PA note and medication orders is finasteride. Medication provided to Una at [place] by 's son is alfuzosin, not finasteride. Contacted Una to advise alfuzosin is not on patient's [facility] med list and does not appear to have been ordered by [place]. She agrees to contact 's son to determine who prescribed alfuzosin and will contact Uro CM with this information. /angie/ VAL LOPEZ UROLOGY SURGERY GOVERNMENT SERVICES PROFESSIONAL Signed: 04/19/2024 09:26 Receipt Acknowledged By: * AWAITING SIGNATURE * VERNA WEST EUGENIA S [place]
--- OUTSIDE RECORDS SUMMARY | 2024-04-24 13:50 | XMS_ITS | Encounter Summary ---
Author Name [place] Address [address] [place] [address] Care Team Providers Care Icing Machine Operator Name Role Phone LIOR JAUREGUI Primary Care [...] Ling's Name Patient's Relationship to Policy Ling [facility] MCR (WNR) MEDICARE ADVANTAGE MCR (WNR) May 29, 2018 [facility] [id number] Yoav KUMARKathrine PATIENT HUMANA MCR (WNR) MEDICARE ADVANTAGE MCR (WNR) May 29, 2020 [id number] Yoav KUMAR HAYDENGUILLERMOKathrine PATIENT [employer]MANA MCR (WNR) MEDICARE ADVANTAGE MCR (WNR) May 29, 2020 [id number] Yoav KUMAR HAYDENMIKA PATIENT [employer]NA MCR (WNR) MEDICARE ADVANTAGE MCR(W NR) May 29, 2012 [id number] Yoav KUMAR PATIENT MEDICARE (WNR) MEDICARE (M) PART A Jul 27, 2002 PART A [id number] Yoav KUMAR HAYDENGUILLERMOKathrine PATIENT MEDICARE (WNR) MEDICARE (M) PART B Jul 27, 2002 PART B [id number] Yoav KUMAR PATIENT MEDICARE PART D (WNR) MEDICARE (M) PART D May 29, 2012 PART D [id number] Yoav KUMAR PATIENT MEDICARE PART D (WNR) MEDICARE (M) PART D May 29, 2012 PART D [id number] Yoav KUMAR PATIENT Selected Encounter This section includes the information on record at [place] for the Encounter. Date/Time Encounter Type Encounter Description Reason Provider Source Jul 17, 2023 11:22 AM Outpatient Encounter TELEPHONE TRIAGE NBA GALARZA Encounter Template Text not used by [place] Plan of Treatment: Future Appointments (+ 6 [...] Date/Time Appointment Type Appointme nt Facility Name Aug 24, 2023 10:30 AM [facility] Sep 05, 2023 01:00 PM AMBULATORY - MEDICINE [facility] Encounter Notes: All associated encounter notes This section contains the clinical notes associated to the Encounter. Date/Time Encounter Note(s) Provider Source Jul 17, 2023 11:23 AM RN PROGRESS NOTE: LOCAL TITLE: CCC: CLINICAL TRIAGE STANDARD TITLE: RN PROGRESS NOTE DATE OF NOTE: JUL 17, 2023@11:23:03 ENTRY DATE: JUL 17, 2023@11:23:03 AUTHOR: NBA GALARZA COSIGNER: URGENCY: STATUS: COMPLETED Patient Demographics Patient Name: KAREN KUMAR Patient Primary Address: [address] [place] [address] Patient Primary Phone: [phone] Patient : 1935 Patient Age: 87 Caller/Recipient Relation to Patient: Self Emergency Contact: ANTONIO KUMAR Nursing Plan and Disposition Other course(s) of action Alternative course of action Alternative courses of action: Admin Non-Triage/Non-Symptom Call Provided patient w/ administrative Info Clinical Contact Center Codes Clinic/Location: V9 NIA PHONE CCC RN Notes Notes & Information: Assisted by phone with confirmation of upcoming appt information. /angie/ NBA GALARZA RN VISN 9 TELEPHONE CARE NURSE Signed: 07/17/2023 11:23 NBA GALARZA-Rosemary [facility]
--- OUTSIDE RECORDS SUMMARY | 2024-04-24 13:50 | XMS_ITS ---
Author Name [facility] [place] [facility] [place] Address [address] [place] [address] Care Team Providers Care Ob/Gyn Doctor Name Role Phone LIOR JAUREGUI Primary Care [...] MEDICARE ADVANTAGE MCR (WNR) May 29, 2018 [facility] [id number] Yoav KUMAR PATIENT [employer] MCR (WNR) MEDICARE ADVANTAGE MCR (WNR) May 29, 2020 [id number] Yoav KUMAR PATIENT [employer] MCR (WNR) MEDICARE ADVANTAGE MCR (WNR) May 29, 2020 [id number] Yoav KUMAR HAYDENGUILLERMO PATIENT [employer] MCR (WNR) MEDICARE ADVANTAGE MCR(W NR) May 29, 2012 [id number] Yoav KUMAR PATIENT MEDICARE (WNR) MEDICARE (M) PART A Jul 27, 2002 PART A [id number] Yoav KUMARKathrine PATIENT MEDICARE (WNR) MEDICARE (M) PART B Jul 27, 2002 PART B [id number] Yoav KUMAR PATIENT MEDICARE PART D (WNR) MEDICARE (M) PART D May 29, 2012 PART D [id number] Yoav KUMAR PATIENT MEDICARE PART D (WNR) MEDICARE (M) PART D May 29, 2012 PART D [id number] Yoav KUMAR PATIENT Selected Encounter This section includes the information on record at [place] for the Encounter. Date/Time Encounter Type Encounter Description Reason Provider Source Aug 24, 2023 10:30 AM OFFICE O/P EST MOD 30 MIN UROLOGY CLINIC ICD-10-CM N40.1 Benign prostatic hyperplasia with lower urinary tract symp WERO WESTYSO N B IHE Encounter Template Text not used by [place] Assessments - Encounter Diagnoses This section includes the primary and secondary diagnoses documented for the Encounter. Date/Time Primary/Secondary Diagnosis Diagnosis Name Provider Source Sep 04, 2023 01:26 PM PRIMARY Benign prostatic hyperplasia with lower urinary tract symp BRETTALLYSO N B [place] [facility] Sep 04, 2023 01:26 PM SECONDARY Scrotal pain WERO WESTYSO N B [place] [facility] Sep 04, 2023 01:26 PM SECONDARY Urge incontinence DEVENDRA WESTO N B [place] [facility] Sep 04, 2023 01:26 PM SECONDARY Urgency of urination DEVENDRA WESTO N B [place] [facility] Plan of Treatment: Future Appointments (+ 6 months) and Future Tests (+/- 45 days) The Plan of Treatment section includes future care activities for the patient from all [place] treatmentfacilities. This section includes future appointments and future orders which are active, pending or scheduled. Future Appointments This section includes appointments that were scheduled to occur 6 months from the date of the Encounter, up to a maximum of 20 appointments. The data comes from all [place] treatment facilities. Appointment Date/Time Appointment Type Appointme nt Facility Name Sep 05, 2023 01:00 PM [facility] Lab Results: +/- 30 days of the encounter This section includes the Chemistry and Hematology Lab Results on record with [place] for the patient. Radiology Reports and Pathology Reports are provided separately, in subsequent sections. Lab Results This section contains the Chemistry/Hematology Results that were resulted 30 days before or 30 daysafter the date of the Encounter. Date/Time Source Result Type Result - Unit Interpretation Reference Range Comment Aug 24, 2023 11:04 AM [facility] POC URINALYSIS Specimen Type: URINE Comment: Test performed by: [id number] Meter #: [id number] Ordering Provider: TK KEMP Report Released Date/Time: Aug 24, 2023 10:47 AM Reporting Lab: [address] [address] Performing Lab: [address] [address] .GLUCOSE Ur (POC) Negative mg/dL neg .KETONES Ur (POC) Negative mg/dL neg .BLOOD Ur (POC) Negative neg .PH Ur (POC) 6.0 5.0-8.5 .PROTEIN Ur (POC) Negative mg/dL neg .NITRITE Ur (POC) Negative neg .LEUKOCYTES Ur (POC) Negative neg .SG Ur (POC) 1.015 >1.000 Encounter Notes: All associated encounter notes This section contains the clinical notes associated to the Encounter. Date/Time Encounter Note(s) Provider Source Aug 24, 2023 10:22 AM UROLOGY PHYSICIAN SEXUAL ASSAULT COUNSELOR NOTE: LOCAL TITLE: UROLOGY CLINIC PA NOTE STANDARD TITLE: UROLOGY PHYSICIAN SEXUAL ASSAULT COUNSELOR NOTE DATE OF NOTE: AUG 24, 2023@10:22 ENTRY DATE: AUG 24, 2023@10:22:32 AUTHOR: VERNA WEST EXP COSIGNER: URGENCY: STATUS: COMPLETED UROLOGY CLINIC JULIA NOTE Has ADDENDA CC: LUTS/OAB/scrotal pain HPI-88 MALE here for LUTS and scrotal pain follow up. Urinary symptoms currently managed with terazosin and started solifenacin 10/2022. Patient reports no improvement in urgency or UUI with solifenacin. Oxybutynin was the only overactive medication that was ever beneficial, but this was discontinued due to his diagnosis of Alzheimers Disease. He has failed trospium and mirabegron. Though patient never noticed any cognitive side effects with oxybutynin, he is the sole caregiver for his , who also has Alzheimers, and he is not willing to risk impaired cognition. Patient also has a history of chronic scrotal pain. He takes Vit B12. He had a repeat scrotal US on 01/17/23, which demonstrated bilateral simple testicular cysts and bilateral L>R hydroceles. Today he reports recent dizziness episodes. He reports insomnia, typically sleeping from 10pm-1am and then staying awake. This is because he has been out of condom catheters and he fears he will wet the bed . He also is unsure of where his Vázquez clamp is that was previously given to him and believes his threw away his incontinence supplies. He currently is not using any pads/depends. He reports ongoing scrotal pain, worse upon standing. He continues with B12. He has been unable to attend PFPT, but is agreeable to try. He continues with incontinence. Denies GH or dysuria. He was unable to attend PFPT, but was unaware what the consult was for. ALLERGIES: LAMISIL PE: GEN: WD, WN male, NAD, A & O x 3 CV: Well-perfused RESP: Breathing non-labored ABD: S, NT, NABS, no masses EXT: No edema exam: Penis: Circumcised penis, no lesions, meatus normal caliber and location without discharge Scrotum skin is normal, testes descended bilaterally, small left hydrocele epididymis and cord structures normal bilaterally. DATA REVIEWED: LABS REVIEWED FOR today's visit: Office U/A dipstick: Collection time: Aug 16, 2022@09:56 Test Name Result Units Range --------- ------ ----- ----- .GLUCOSE Ur (POC) Negative mg/dL Ref: neg .KETONES Ur (POC) Negative mg/dL Ref: neg .BLOOD Ur (POC) Negative Ref: neg .PH Ur (POC) 7.0 5.0 - 8.5 .PROTEIN Ur (POC) Negative mg/dL Ref: neg .NITRITE Ur (POC) Negative Ref: neg .LEUKOCYTES Ur (POC) Negative Ref: neg .SG Ur (POC) 1.010 Ref: >=1.000 Comments: Z PROSTATIC ANTIGEN - NONE FOUND PANEL 1 - NONE FOUND RADIOGRAPHIC IMAGING or reports REVIEWED for today's visit: U/S SCROTUM Date Reported: JAN 18, 2023 Impression: Bilateral simple testicular cysts and no solid testicular lesion. Bilateral hydroceles left greater than right. No testicular torsion. DIAGNOSES/PROBLEMS ADDRESSED AT THIS ENCOUNTER: 1. BPH/LUTS, primarily urinary urgency/UUI, currently managed with solifenacin and terazosin. He has had recent dizziness. Advised to take terazosin PM instead of at noon. Continue solifenacin. 2. Scrotal pain - discussed tighter fitting underwear, continue Vit B12. PLAN: - Take terazosin PM, continue solifenacin - Scrotal support - Rx for liners - Re-education of piero clamp and condom catheter with Tech Roscoe today -Follow-up plan is to return to Urology in 6 months. -A total of 35 minutes were spent on this encounter which included chart and test review before seeing the patient, performing appropriate history/exam during the visit, counseling the patient, ordering tests and/or medications, arranging follow-up, making referral (when indicated) to another specialist, interpretation of tests results and discussion with the patient/family, documentation in the electronic health record and coordination of care. /es/ VERNA WEST UROLOGY PA Signed: 08/24/2023 13:04 08/24/2023 ADDENDUM STATUS: COMPLETED Appt scheduled Feb 27, 2024@12:30 GUATAY MAL URO/PA/CD FUTURE /es/ Sylvia Weems Scheduler Maintenance Signed: 08/24/2023 13:53 03/13/2024 ADDENDUM STATUS: COMPLETED Mal Uro/Pa/Cd 04/18/2024@13:30 Future RESCHED PER PT DD, PER [id number] NOTE /es/ Gerhard Polanco MSA Signed: 03/13/2024 09:16 [facility]ST[facility]
--- OUTSIDE RECORDS SUMMARY | 2024-04-24 13:50 | XMS_ITS | Encounter Summary ---
Author Name [place] Address [address] [place] [address] Care Team Providers Care Green Chain Marker Name Role Phone LIOR JAUREGUI Primary Care [...] Ling's Name Patient's Relationship to Policy Ling [facility] MCR (WNR) MEDICARE ADVANTAGE MCR (WNR) May 29, 2018 [facility] [id number] Yoav KUMAR PATIENT [employer]NA MCR (WNR) MEDICARE ADVANTAGE MCR (WNR) May 29, 2020 [id number] Yoav KUMAR HAYDENGUILLERMOKathrine PATIENT [employer]NA MCR (WNR) MEDICARE ADVANTAGE MCR (WNR) May 29, 2020 [id number] Yoav KUMAR HAYDENGUILLERMOKathrine PATIENT [employer]NA MCR (WNR) MEDICARE ADVANTAGE MCR(W NR) May 29, 2012 [id number] Yoav KUMAR PATIENT MEDICARE (WNR) MEDICARE (M) PART A Jul 27, 2002 PART A [id number] Yoav KUMARKathrine PATIENT MEDICARE (WNR) MEDICARE (M) PART B Jul 27, 2002 PART B [id number] Yoav KUMAR PATIENT MEDICARE PART D (WNR) MEDICARE (M) PART D May 29, 2012 PART D [id number] [phone] [id number] Yoav KUMAR PATIENT MEDICARE PART D (WNR) MEDICARE (M) PART D May 29, 2012 PART D [id number] [phone] Yoav KUMAR PATIENT Selected Encounter This section includes the information on record at [place] for the Encounter. Date/Time Encounter Type Encounter Description Reason Pro vider Source Feb 27, 2024 12:30 PM Outpatient Encounter UROLOGY CLINIC IHE Encounter Template Text not used by [place] Plan of Treatment: Future Appointments (+ 6 months) and Future Tests (+/- 45 days) The Plan of Treatment section includes future care activities for the patient from all [place] treatmentfacilities. This section includes future appointments and future orders which are active, pending or scheduled. Future Appointments This section includes appointments that were scheduled to occur 6 months from the date of the Encounter, up to a maximum of 20 appointments. The data comes from all [place] treatment facilities. Appointment Date/Time Appointment Type Appointme nt Facility Name Apr 18, 2024 01:30 PM [facility] Encounter Notes: All associated encounter notes This section contains the clinical notes associated to the Encounter. Date/Time Encounter Note(s) Provider Source Feb 27, 2024 02:05 PM NO SHOW NOTE: LOCAL TITLE: NO-SHOW PROGRESS NOTE STANDARD TITLE: NO SHOW NOTE DATE OF NOTE: FEB 27, 2024@14:05 ENTRY DATE: FEB 27, 2024@14:05:11 AUTHOR: REJI PEDRO EXP COSIGNER: URGENCY: STATUS: COMPLETED NO-SHOW PROGRESS NOTE Has ADDENDA Patient failed to attend Urology clinic appointment on 02/27/2024 at 12:30. Please attempt to reschedule pt in same clinic, no overbook. Thank you! /angie/ REJI PEDRO Urology PA Signed: 02/27/2024 14:07 Receipt Acknowledged By: 02/27/2024 14:51 /angie/ Sylvia Weems Advanced Patient Care Coordinator 02/27/2024 ADDENDUM STATUS: COMPLETED Appt N/S'D Feb 27, 2024@12:30 [place] [facility] URO/PA/CD NO-SHOW Left VM for to return call to R/S appt RTC PID 02/26/24 w/ NIA URO/PA. LOC mailed. /es/ Sylvia Weems Advanced Patient Care Coordinator Signed: 02/27/2024 14:52 REJI PEDRO-[facility]
--- OUTSIDE RECORDS SUMMARY | 2024-04-24 13:51 | XMS_ITS ---
Laboratory report Created on: March 29, 2024 KAREN KUMAR : 1935 Sex: Male Author Name MIRIAN GALARZA Organization Unknown PROBLEMS Problems List Code Description N40.0 E78.5 I25.10 RESULTS Laboratory Orders Date Order Code Test 2022-12-20 682763 COMP. METABOLIC PANEL (14) 2022-12-20 275913 LIPID PANEL 2022-12-20 329708 PSA TOTAL+% FREE Laboratory Results Date LOINC Test Value Unit Reference Range Interpre tation 2022-12-20 2345-7 GLUCOSE 88 MG/DL 70-99 2022-12-20 3094-0 BUN 24 MG/DL 8-2022-12-20 2160-0 CREATININE 1.19 MG/DL 0.76-1.27 2022-12-20 20990-2 EGFR 60 ML/MIN/1.7 3 >59 2022-12-20 3097-3 BUN/CREATININE RATIO 20 10-24 2022-12-20 2951-2 SODIUM 142 MMOL/L 702-676 3441-07-25 2823-3 POTASSIUM 4.4 MMOL/L 3.5-5.2 2022-12-20 2075-0 CHLORIDE 101 MMOL/L 96-106 2022-12-20 2028-9 CARBON DIOXIDE, TOTAL 25 MMOL/L 20-2022-12-20 55049-9 CALCIUM 9.1 MG/DL 8.6-10.2 2022-12-20 2885-2 PROTEIN, TOTAL 6.4 G/DL 6.0-8.5 2022-12-20 1751-7 ALBUMIN 4.1 G/DL 3.7-4.7 2022-12-20 01237-1 GLOBULIN, TOTAL 2.3 G/DL 1.5-4.5 2022-12-20 1759-0 A/G RATIO 1.8 1.2-2.2 2022-12-20 1975-2 BILIRUBIN, TOTAL .4 MG/DL 0.0-1.2 2022-12-20 6768-6 ALKALINE PHOSPHATASE 92 IU/L 44-121 2022-12-20 1920-8 AST (SGOT) 22 IU/L 0-40 2022-12-20 1742-6 ALT (SGPT) 18 IU/L 0-44 2022-12-20 2093-3 CHOLESTEROL, TOTAL 120 MG/DL 256-347 7681-07-25 2571-8 TRIGLYCERIDES 58 MG/DL 0-149 2022-12-20 2085-9 HDL CHOLESTEROL 62 MG/DL >39 2022-12-20 95681-7 VLDL CHOLESTEROL VASILE 13 MG/DL 5-40 2022-12-20 74550-3 LDL CHOL CALC ([facility]) 45 MG/DL 0-99 2022-12-20 2857-1 PROSTATE SPECIFIC AG 5 NG/ML 0.0-4.0 H 2022-12-20 90002-1 PSA, FREE 2.19 NG/ML N/A 2022-12-20 26320-6 % FREE PSA 43.8 %
--- OUTSIDE RECORDS SUMMARY | 2024-04-24 13:51 | XMS_ITS | Continuity of Care Document ---
Author Organization [address] [place] [address] Address [address] [facility] [address] [place] [address] Phone Care Team Providers Care Soap Mixer Name Role Phone Enmanuel Babb DPM Unavailable Unavailable Allergies, Adverse Reactions, Alerts Substance Reaction Status Criticality No Known Allergies Active No Inform ation Medications Medication Instructions Dosage Effective Dates (start - stop) Status Comments levothyroxine 25 mcg tablet - Active donepezil 10 mg tablet - Act jazmyn furosemide 20 mg tablet TAKE 1 TABLET BY MOUTH THREE TIMES DAILY - Active pantoprazole 40 mg tablet,delayed release - Active rosuvastatin 20 mg tablet - Active terazosin 5 mg capsule - Act jazmyn losartan 100 mg-hydrochlorothiazide 12.5 mg tablet - Active nystatin-triamcinolone 100,000 unit/g-0.1 % topical cream APPLY CREAM TOPICALLY TO AFFECTED AREA TWICE DAILY - Active donepezil 5 mg tablet - Acti ve Procedures Procedure Date DEBRIDE NAIL 6 OR MORE Advance Directives Directive Yes / No Effective Date File Name No Information Encounters Encounter Description Practice Location Reason(s) For Visit Diagnoses Date Provider Providers Copied on Encounter [address] [place] [address], [address], [place], [place], [id number], tel:[phone] [facility] Tinea unguiumOther specified peripheral vascular diseases Skinny Singer. [address] [facility], [address], [place], [address], [place]. Referring Provider: Rosas Goldstein. [address] [place] [address], [address], [place], [place], [id number], [place] tel:[phone] [facility] No Information Skinny Singer. [address], [address], [place], [address], [place]. Family History Family Member Type Diagnosis Age At Onset No Information Payers Payer name Insurance type Covered green party ID Authoriza tion(s) [employer] Medicare MB [id number] Social History Type Description Quantity Date Captured Comments Sex Male Smoking Status No Information Chief Complaint And Reason For Visit No Information Reason For Referral Reason For Referral No Information History Of Present Illness Encounter Date Complaint History Of Prese nt Illness No Information Functional Status Date Functional Assessmen t No Information Instructions Date Instruction Additional Infor mation Toenails 1-5 b/l wer e debrided in length and thickness without incident. Follow up in 2-3 months. Related to Tinea unguium Assessments Type Assessment Date assessment Tinea unguium assessment Other specified peripheral vascu lar diseases Patient Care Teams Name Effective Dates (start - stop) Status Members No Information
--- OUTSIDE RECORDS SUMMARY | 2024-04-24 13:51 | XMS_ITS ---
Author Organization [facility] No information ASSESSMENT No information CHIEF COMPLAINT No information Medications Date Medication Dosage Dosageunit Startdate Active Dispense Refills Ndccode Isprescription Srcstatus 12/20 00:00 :00 Antacid Double Strength null 0 Discont inu ed 06/20 00:00 :00 Artificial Tear null 1 Taking 12/20 00:00 :00 Artificial Tear null 1 Taking 06/20 00:00 :00 Aspirin 81 MG Tablet Chewable null 1 30 [id number] 836 Taking 12/20 00:00 :00 Aspirin 81 MG Tablet Chewable null 1 30 [id number] 836 Taking 12/20 00:00 :00 Brilinta 90 MG Tablet null 0 60 89472094 708 Discontinu ed 12/20 00:00 :00 Ciclopirox 0.77 % Gel 02/03/2021 00:00:00 0 3 1 [id number] 730 P Discontinu ed 06/20 00:00 :00 ClearLax - Powder null 1 71603341 601 Taking 12/20 00:00 :00 ClearLax - Powder null 1 [id number] 601 Taking 12/20 00:00 :00 Clotrimazol e-Betametha sone 1-0.05 % Cream 01/24/2020 00:00:00 0 15 gm 0 [id number] 815 P Discontinu ed 06/20 00:00 :00 CoQ-10 100 MG Capsule Extended Release null 1 [id number] 38 Taking 12/20 00:00 :00 CoQ-10 100 MG Capsule Extended Release null 1 60064043 38 Taking 06/20 00:00 :00 Crestor 20 MG Tablet null 1 30 [id number] 239 Taking 12/20 00:00 :00 Crestor 20 MG Tablet null 1 30 [id number] 239 Taking 10/22 00:00 :00 Donepezil HCl 5 MG Tablet null 1 90 Tablet 0 [id number] 706 Start 10/22 00:00 :00 Donepezil HCl 5 MG Tablet null 0 90 Tablet 0 [id number] 810 Stop 08/05 00:00 :00 Donepezil HCl 5 MG Tablet null 1 90 Tablet 0 [id number] 810 Start 08/05 00:00 :00 Donepezil HCl 5 MG Tablet null 0 90 Tablet 0 20592255 810 Stop 06/20 00:00 :00 Donepezil HCl 5 MG Tablet null 1 90 Tablet 0 [id number] 810 Taking 03/17 00:00 :00 Donepezil HCl 5 MG Tablet null 1 90 Tablet 0 [id number] 810 Start 03/17 00:00 :00 Donepezil HCl null 0 90 Tablet 11 [id number] 810 Stop 12/20 00:00 :00 Donepezil HCl 5 MG Tablet null 1 90 3 80344062 511 Taking 06/20 00:00 :00 Fiber - Powder null 1 [id number] 17 Taking 12/20 00:00 :00 Fiber - Powder null 1 [id number] 17 Taking 08/03 00:00 :00 Furosemide 20 MG Tablet null 1 270 Tablet 0 57111290 111 P Refill 07/16 00:00 :00 Furosemide 20 MG Tablet null 1 270 Tablet 0 [id number] 111 Start 07/16 00:00 :00 Furosemide 20 MG Tablet null 0 90 Tablet 3 [id number] 725 Stop 06/20 00:00 :00 Furosemide 20 MG Tablet 02/20/2023 00:00:00 1 90 Tablet 3 [id number] 725 P Taking 02/20 00:00 :00 Furosemide 20 MG Tablet 02/20/2023 00:00:00 1 90 Tablet 3 [id number] 725 P Start 12/20 00:00 :00 hydroCHLORO thiazide 12.5 MG Tablet null 0 30 81163470 011 Discontinu ed 12/20 00:00 :00 Lasix 20 MG Tablet 04/15/2020 00:00:00 0 90 1 [id number] 701 P Discontinu ed 06/20 00:00 :00 Losartan Potassium 100 MG Tablet null 1 30 69991600 522 Taking 12/20 00:00 :00 Losartan Potassium 100 MG Tablet null 1 30 91222731 522 Taking 06/20 00:00 :00 Melatonin 5 MG Tablet null 1 30 [id number] 001 Taking 12/20 00:00 :00 Melatonin 5 MG Tablet null 1 30 85161279 001 Taking 12/20 00:00 :00 Myrbetriq 25 MG Tablet Extended Release 24 Hour null 0 30 02681244 130 Discontinu ed 06/20 00:00 :00 Nystatin-Tr iamcinolone 317588- 0.1 UNIT/GM Cream null 1 15 Gram 1 [id number] 301 Taking 05/26 00:00 :00 Nystatin-Tr iamcinolone 678217- 0.1 UNIT/GM Cream null 1 15 Gram 1 [id number] 301 Start 05/26 00:00 :00 Nystatin-Tr iamcinolone 0 null 0 15 Gram 1 [id number] 301 Stop 05/25 00:00 :00 Nystatin-Tr iamcinolone 350634- 0.1 UNIT/GM Cream 05/25/2023 00:00:00 1 1 2 [id number] 115 P Start 12/20 00:00 :00 Nystatin-Tr iamcinolone 726230- 0.1 UNIT/GM Cream 02/05/2020 00:00:00 0 1 2 [id number] 115 Discontinu ed 12/20 00:00 :00 oxyBUTYnin Chloride 5 MG Tablet null 0 79140624 020 Discontinu ed 06/20 00:00 :00 Pantoprazol e Sodium 20 MG Tablet Delayed Release null 1 30 82915917 877 Taking 12/20 00:00 :00 Pantoprazol e Sodium 20 MG Tablet Delayed Release null 1 30 01030621 877 Taking 06/20 00:00 :00 Terazosin HCl 5 MG Capsule null 1 90 3 [id number] 506 Taking 03/17 00:00 :00 Terazosin HCl 5 MG Capsule null 1 90 3 70491496 506 Start 03/17 00:00 :00 Terazosin HCl 5 MG Capsule null 0 90 3 [id number] 506 Stop 12/20 00:00 :00 Terazosin HCl 5 MG Capsule null 1 90 3 [id number] 506 Taking OBJECTIVE DATA No information PHYSICAL EXAMINATION No information TREATMENT PLAN No information PROBLEMS No information RESULTS No information REVIEW OF SYSTEMS No information SUBJECTIVE DATA No information VITAL SIGNS No information
--- OUTSIDE RECORDS SUMMARY | 2024-04-24 13:51 | XMS_ITS ---
Author Organization Unknown [facility]ACTION[facility] No information ASSESSMENT No information CHIEF COMPLAINT No information Medications Date Medication Dosage Dosageunit Startdate Active Dispense Refills Ndccode Isprescription Srcstatus 12/26 00:00 :00 Artificial Tear 1 Not Taki ng 06/20 00:00 :00 Artificial Tear 1 Taking 12/26 00:00 :00 Aspirin 81 MG Tablet Chewable 1 30 41600863 836 P Refill 12/26 00:00 :00 Aspirin 81 MG Tablet Chewable 1 30 51291430 836 Taking 06/20 00:00 :00 Aspirin 81 MG Tablet Chewable 1 30 59154146 836 Taking 12/26 00:00 :00 ClearLax - Powder 1 1 11 96985690 601 P Refill 12/26 00:00 :00 ClearLax - Powder 1 [id number] 601 Taking 06/20 00:00 :00 ClearLax - Powder 1 61257528 601 Taking 12/26 00:00 :00 CoQ-10 100 MG Capsule Extended Release 1 60 11 15283292 38 P Refill 12/26 00:00 :00 CoQ-10 100 MG Capsule Extended Release 1 [id number] 38 Taking 06/20 00:00 :00 CoQ-10 100 MG Capsule Extended Release 1 [id number] 38 Taking 12/26 00:00 :00 Crestor 20 MG Tablet 1 30 [id number] 090 Not Taking 06/20 00:00 :00 Crestor 20 MG Tablet 1 30 [id number] 090 Taking 01/10 00:00 :00 Donepezil HCl 5 MG Tablet 1 90 Tablet 0 18115403 810 P Refill 01/06 00:00 :00 Donepezil HCl 5 MG Tablet 1 90 Tablet 1 [id number] 810 Start 01/06 00:00 :00 Donepezil HCl 5 MG Tablet 0 90 Tablet 0 00453231 706 Stop 12/26 00:00 :00 Donepezil HCl 5 MG Tablet 1 90 Tablet 0 91966729 706 P Refill 12/26 00:00 :00 Donepezil HCl 5 MG Tablet 1 90 Tablet 0 [id number] 706 Taking 10/22 00:00 :00 Donepezil HCl 5 MG Tablet 1 90 Tablet 0 [id number] 706 Start 10/22 00:00 :00 Donepezil HCl 5 MG Tablet 0 90 Tablet 0 [id number] 810 Stop 08/05 00:00 :00 Donepezil HCl 5 MG Tablet 1 90 Tablet 0 22161283 810 Start 08/05 00:00 :00 Donepezil HCl 5 MG Tablet 0 90 Tablet 0 [id number] 810 Stop 06/20 00:00 :00 Donepezil HCl 5 MG Tablet 1 90 Tablet 0 [id number] 810 Taking 03/17 00:00 :00 Donepezil HCl 5 MG Tablet 1 90 Tablet 0 53744992 810 Start 03/17 00:00 :00 Donepezil HCl 0 90 Tablet 11 42603484 810 Stop 12/26 00:00 :00 Fiber - Powder 1 1 11 [id number] 17 P Refill 12/26 00:00 :00 Fiber - Powder 1 [id number] 17 Taking 06/20 00:00 :00 Fiber - Powder 1 [id number] 17 Taking 01/06 00:00 :00 Furosemide 20 MG Tablet 1 270 Tablet 0 86216218 731 Start 01/06 00:00 :00 Furosemide 20MG 0 270 Tablet 1 [id number] 731 Stop 01/03 00:00 :00 Furosemide 20 MG Tablet 1 270 Tablet 0 71151240 111 P Refill 12/26 00:00 :00 Furosemide 20 MG Tablet 1 270 Tablet 0 93092811 111 P Not Taking 08/03 00:00 :00 Furosemide 20 MG Tablet 1 270 Tablet 0 74968041 111 P Refill 07/16 00:00 :00 Furosemide 20 MG Tablet 1 270 Tablet 0 88324066 111 Start 07/16 00:00 :00 Furosemide 20 MG Tablet 0 90 Tablet 3 69403766 725 Stop 06/20 00:00 :00 Furosemide 20 MG Tablet 02/20/2023 00:00:00 1 90 Tablet 3 [id number] 725 P Taking 02/20 00:00 :00 Furosemide 20 MG Tablet 02/20/2023 00:00:00 1 90 Tablet 3 [id number] 725 P Start 12/26 00:00 :00 Losartan Potassium 100 MG Tablet 1 30 [id number] 730 P Refill 12/26 00:00 :00 Losartan Potassium 100 MG Tablet 1 30 [id number] 730 Taking 06/20 00:00 :00 Losartan Potassium 100 MG Tablet 1 30 [id number] 730 Taking 12/26 00:00 :00 Melatonin 10 MG Tablet 1 30 Tablet [id number] 724 P Refill 12/26 00:00 :00 Melatonin 10 MG Tablet 1 30 Tablet [id number] 724 Taking 06/20 00:00 :00 Melatonin 5 MG Tablet 1 30 [id number] 001 Taking 12/26 00:00 :00 Nystatin-Tr iamcinolone 427144- 0.1 UNIT/GM Cream 1 15 Gram 1 [id number] 301 Not Taking 06/20 00:00 :00 Nystatin-Tr iamcinolone 695177- 0.1 UNIT/GM Cream 1 15 Gram 1 [id number] 301 Taking 05/26 00:00 :00 Nystatin-Tr iamcinolone 292137- 0.1 UNIT/GM Cream 1 15 Gram 1 [id number] 301 Start 05/26 00:00 :00 Nystatin-Tr iamcinolone 0 0 15 Gram 1 [id number] 301 Stop 05/25 00:00 :00 Nystatin-Tr iamcinolone 742467- 0.1 UNIT/GM Cream 05/25/2023 00:00:00 1 1 2 [id number] 130 P Start 12/26 00:00 :00 Pantoprazol e Sodium 40 MG Tablet Delayed Release 1 30 46089525 910 P Refill 12/26 00:00 :00 Pantoprazol e Sodium 40 MG Tablet Delayed Release 1 30 [id number] 910 Taking 06/20 00:00 :00 Pantoprazol e Sodium 20 MG Tablet Delayed Release 1 30 [id number] 877 Taking 12/26 00:00 :00 Rosuvastati n Calcium 20 MG Tablet 1 30 3 [id number] 061 P Refill 12/26 00:00 :00 Rosuvastati n Calcium 20 MG Tablet 1 [id number] 061 Taking 12/26 00:00 :00 Solifenacin Succinate 5 MG Tablet 1 30 3 [id number] 519 P Refill 12/26 00:00 :00 Solifenacin Succinate 5 MG Tablet 1 [id number] 519 Taking 12/26 00:00 :00 Terazosin HCl 5 MG Capsule 1 90 3 [id number] 506 P Refill 12/26 00:00 :00 Terazosin HCl 5 MG Capsule 1 90 3 [id number] 506 Taking 06/20 00:00 :00 Terazosin HCl 5 MG Capsule 1 90 3 [id number] 506 Taking 03/17 00:00 :00 Terazosin HCl 5 MG Capsule 1 90 3 [id number] 506 Start 03/17 00:00 :00 Terazosin HCl 5 MG Capsule 0 90 3 [id number] 506 Stop 12/26 00:00 :00 Vitamin E74-Vbusf Acid 500-400 MCG Tablet 1 30 3 [id number] 81 P Refill 12/26 00:00 :00 Vitamin N07-Nwmgo Acid 500-400 MCG Tablet 1 [id number] 81 Taking OBJECTIVE DATA No information PHYSICAL EXAMINATION No information TREATMENT PLAN No information PROBLEMS No information RESULTS No information REVIEW OF SYSTEMS No information SUBJECTIVE DATA No information VITAL SIGNS No information
[2024-04-24 14:28] LABS: Basophils % 0.2 % (0.1-2.0); Eosinophils % 0.4 % (0.1-12.0); Hematocrit 33.6 % (42.0-52.0); Hemoglobin 11.4 g/dL (14.1-18.0); Lymphocytes # 2.2 K/mm3 (0.7-4.5); Lymphocytes % 20.8 % (10-50); Mean Corpuscular Hemoglobin 31.5 pg (27.0-31.2); Mean Corpuscular Volume 92.6 fl (80-94); Mean Platelet Volume 8.1 fl (7.4-10.4); Monocytes # 0.6 K/mm3 (0.1-1.0); Monocytes % 5.9 % (1.7-9.3); Neutrophils # 7.5 K/mm3 (1.8-7.8); Neutrophils % 72.6 % (37.0-80.0); Platelet Count 198 K/mm3 (142-424); Red Blood Count 3.63 M/mm3 (4.60-6.20); Red Cell Distribution Width 13.4 % (11.5-17.5); White Blood Count 10.3 K/mm3 (4.8-10.8)
[2024-04-24 14:44] LABS: Chloride 105 mmol/L (98-107); Potassium 3.8 mmoL/L (3.5-5.1); Sodium 139 mmol/L (136-145)
[2024-04-24 14:47] LABS: Anion Gap 10.8 mEq/L (5-15); Blood Urea Nitrogen 40 mg/dl (9-20); Calcium 8.5 mg/dl (8.4-10.2); Carbon Dioxide 27 mmol/L (22.0-30.0); Estimated Glomerular Filt Rate 41 ml/min (>60); GFR (African American) 50 ML/MIN (>60); Glucose 106 mg/dl (74-100)
== END 2024-04-24 23:59 | disposition home or self-care (01) ==
LOC: LAB.DROPOF 13:48
PROVIDERS: PCP Nurse Practitioner Family; Visit Provider Nurse Practitioner Family
DX: I95.9 Hypotension, unspecified (principal)
CPT/HCPCS: 80048; 85025

== ENCOUNTER 2024-07-02 15:46 | Outpatient (CLI) | payer MEDICARE, SELFPAY ==
[2024-07-02 16:09] LABS: Microscopic, Urine URINE MICROSCOPIC (MICROSCOPIC)
[2024-07-02 16:19] LABS: Appearance,Urine CLEAR (Clear); Bilirubin,Urine Negative (Negative); Blood, Urine Negative (Negative); Color,Urine YELLOW (Yellow); Glucose,Urine (UA) Negative (Negative); Ketones,Urine Negative (Negative); Leukocyte Esterase,Urine Negative (Negative); Nitrate,Urine Negative (Negative); Protein,Urine Negative (Negative); Urobilinogen,Urine 0.2 EU/dl (0.2)
[2024-07-02 17:30] LABS: Bacteria,Urine Trace /lpf
== END 2024-07-02 23:59 | disposition home or self-care (01) ==
LOC: LAB.DROPOF 15:47
PROVIDERS: PCP Internal Medicine Adolescent Medicine; Visit Provider Internal Medicine Adolescent Medicine
DX: R41.0 Disorientation, unspecified (principal)
CPT/HCPCS: 81001